=== PATIENT | female | born 1970 | race African-American/Black ===

== ENCOUNTER 2021-12-15 21:10 | Observation (INO) | payer OTHER, SELFPAY ==
--- NOTE | ~2021-12-15 | XR_ITS ---
EXAMINATION: XR chest 1V portable INDICATION: Chest pressure TECHNIQUE: Portable AP chest at 2007 hours COMPARISON: 01/14/2012 FINDINGS: The lungs are free of acute opacities. There is no pleural effusion or pneumothorax. The ca rdiomediastinal silhouette is normal. IMPRESSION: 1. No acute cardiopulmonary abnormality. Reviewed, dictated and finalized at location F. ERCIAL SALES CONSULTANT
--- NOTE | ~2021-12-15 | US_ITS ---
EXAMINATION: US pelvic complete w TV DATE: 12/16/2021 09:03 INDICATION: Heavy menstrual periods, anemia TECHNIQUE: Multiple transabdominal and endovaginal sonographic images of the pelvis were obtained. COMPARISON: None. FINDINGS: The uterus measures 10.8 x 5.1 x 4.7 cm. There is a 1.9 x 1.5 x 1.7 cm intramural fibroid o f the left uterine body. The endometrial complex measures 5 mm. The left ovary is not visualized craven mj no left adnexal abnormality is seen. The right ovary measures 2.7 x 3.9 x 2.7 cm. There is normal vascular flow in the right ovary. There is no free fluid in the pelvis. IMPRESSION: 1. No sonographic correlate for the patient's symptoms. Reviewed, dictated and finalized at location F. C THERAPY SPECIALIST
[2021-12-15 21:21] VITALS: BP 133/75; PULSE 68; RESP 18; TEMP 36.1; O2SAT 100
--- NOTE | 2021-12-15 22:01 | ECG_ITS ---
Measurements Intervals [place] Rate: 61 P: 63 [place]: 180 QRS: 70 QRSD: 85 T: 51 QT: 418 QTc: 423 Interpretive Statements SINUS RHYTHM BORDERLINE T WAVE ABNORMALITY- ANTERIOR LEADS BASELINE ARTIFACT- I, II, AVR, AVL BORDERLINE ECG Electronically Signed On 12-16-2021 7:07:19 TRACK HOE OPERATOR by Howard Carranza D.O.
--- NOTE | 2021-12-15 22:30 | ED.GENADULT ---
HPI - General Adult General Chief complaint: Dizziness Stated complaint: dizzy, blurry vision, chest pain x 3 days Time Seen by Provider: 12/15/21 21:55 History of Present Illness HPI narrative: Patient 51-year-old female presents the emergency department with chief complaint of dizziness. Patient reports she has been having urinary frequency has had symptoms that are worsened whenever she sits up or whenever she walks around patient states that she has also had some discomfort in her chest. Patient reports she is concerned that she may have heart problems and may have diabetes. Patient reports symptoms are not improved by anything. Related Data Allergies Allergy/AdvReac Type Severity Reaction Status Date / Time No Known Allergies Allergy Verified 12/15/21 22:31 Review of Systems Review of Systems: A 10 system review of systems was completed on the patient and is negative except for what is stated in the HPI. Nursing and ancillary documentation was reviewed. Exam Narrative: GENERAL: Well-appearing, well-nourished, and in no acute distress. HEAD: Normocephalic, atraumatic. EYES: PERRLA and EOMI. ENT: Nares clear, no rhinorrhea or epistaxis. Mucous membranes moist. NECK: Supple. CHEST: Clear to auscultation. No respiratory distress. HEART: Regular rate and rhythm. No murmur heard. Normal peripheral pulses. ABDOMEN: Soft, nontender, nondistended, normal active bowel sounds. : Guaiac negative EXTREMITIES: Normal range of motion. No edema. SKIN: Warm, dry, no rash. NEURO: No focal deficits. Alert and oriented x3. PSYCH: Normal mood and affect. Course Course Emergency Course: Chest x-ray shows no focal infiltrate EKG is sinus bradycardia rate of [address] elevation or ST depression Vital Signs Vital signs: Vital Signs Temperature 36.1 C L 12/15/21 21:21 Pulse Rate 68 12/15/21 21:21 Respiratory Rate 18 12/15/21 21:21 Blood Pressure 133/75 12/15/21 21:21 Pulse Oximetry 100 12/15/21 21:21 Temperature 36.1 C L 12/15/21 21:21 Pulse Rate 62 12/15/21 22:32 Respiratory Rate 13 12/15/21 22:32 Blood Pressure 123/76 12/15/21 22:32 Pulse Oximetry 100 12/15/21 22:32 Medical Decision Making Vital Signs Vital Signs: Vital Signs Temperature 36.1 C L 12/15/21 21:21 Pulse Rate 68 12/15/21 21:21 Respiratory Rate 18 12/15/21 21:21 Blood Pressure 133/75 12/15/21 21:21 Pulse Oximetry 100 12/15/21 21:21 Temperature 36.1 C L 12/15/21 21:21 Pulse Rate 62 12/15/21 22:32 Respiratory Rate 13 12/15/21 22:32 Blood Pressure 123/76 12/15/21 22:32 Pulse Oximetry 100 12/15/21 22:32 Lab Data Result diagrams: 12/15/21 22:32 12/15/21 22:33 Labs: Lab Results 12/15/21 12/15/21 12/15/21 Range/Units 22:31 22:32 22:32 WBC 7.9 (4.5-10.0) K/mm3 RBC 4.15 L (4.2-5.4) M/mm3 Hgb 7.7 L (12.0-15.0) g/dL Hct 26.1 L (37.0-47.0) % MCV 62.9 L (80-100) fl MCH 18.6 L (26-34) pg MCHC 29.5 L (32-36) g/dl RDW 19.4 H (11.5-14.5) % Plt Count 477 H (150-375) k/mm3 MPV 9.7 (7.4-10.4) fl Immature Gran % (Auto) 0.3 (0-0.5) % Neut % (Auto) 71.3 (45.5-73.1) % Lymph % (Auto) 19.4 (18.3-44.2) % [place] % (Auto) 7.7 (2.6-8.5) % Eos % (Auto) 0.9 (0-4.4) % Baso % (Auto) 0.4 (0.2-1.2) % Lymph # (Auto) 1.53 (0.9-3.2) K/mm3 [place] # (Auto) 0.6 (0.1-0.6) K/mm3 Eos # (Auto) 0.1 (0-0.3) K/mm3 Baso # (Auto) 0.0 (0.0-0.1) K/mm3 Abs Immat Gran (auto) 0.02 (0.00-0.031) K/mm3 Absolute Neuts (auto) 5.6 (1.3-6.7) K/mm3 Absolute Nucleated RBC 0.0 (0.0-0.012) K/mm3 Nucleated RBC % 0.0 (0.0-0.2) % Platelet Estimate Slightly increased (Adequate) Hypochromasia 3+ (NORMAL) Sodium (137-145) mmol/L Potassium (3.4-5.0) mmol/L Chloride (98-107) mmol/L Carbon Dioxide (22-30) mmol/L Anion Gap (8-16) mmol/L BUN (7-17) mg/d
[2021-12-15 22:32] VITALS: BP 123/76; PULSE 62; RESP 13; O2SAT 100
[2021-12-15] MEDS: SODIUM CHLORIDE 0.9% IV 1,000 ML 999 ML IV CONT (22:50)
[2021-12-15] MEDS: PROCHLORPERAZINE EDISYLATE 10 MG/2 ML VIAL IV PUSH (22:50)
[2021-12-15 22:55] LABS: Basophils Percent Auto 0.4 % (0.2-1.2); Eosinophils Absolute Auto 0.1 K/mm3 (0-0.3); Eosinophils Percent Auto 0.9 % (0-4.4); Hematocrit 26.1 % (37.0-47.0); Hemoglobin 7.7 g/dL (12.0-15.0); Immature Granulocyte Absolute 0.02 K/mm3 (0.00-0.031); Immature Granulocyte Percent A 0.3 % (0-0.5); Lymphocytes Absolute Auto 1.53 K/mm3 (0.9-3.2); Lymphocytes Percent Auto 19.4 % (18.3-44.2); Mean Corpuscular HGB Conc 29.5 g/dl (32-36); Mean Corpuscular Hemoglobin 18.6 pg (26-34); Mean Corpuscular Volume 62.9 fl (80-100); Mean Platelet Volume 9.7 fl (7.4-10.4); Monocytes Absolute Auto 0.6 K/mm3 (0.1-0.6); Monocytes Percent Auto 7.7 % (2.6-8.5); Neutrophils Absolute Auto 5.6 K/mm3 (1.3-6.7); Neutrophils Percent Auto 71.3 % (45.5-73.1); Platelet Count Result 477 k/mm3 (150-375); Red Blood Count 4.15 M/mm3 (4.2-5.4); Red Cell Distribution Width 19.4 % (11.5-14.5); White Blood Count 7.9 K/mm3 (4.5-10.0)
[2021-12-15 22:58] LABS: Add Urine Microscopic? YES; Appearance Urine Clear (Clear); Bilirubin Urine Negative (Negative); Blood Urine Negative (Negative); Color Urine Straw (Yellow); Glucose Urine UA Negative (Negative); Ketones Urine Negative (Negative); Leukocyte Esterase Ur 1+ LEU/UL (Negative); Nitrate Urine Negative (Negative); Protein Urine Negative (Negative); RBC Urine 0-2 /hpf (0-2); Squamous Epithelial Cell Urine Few /hpf (Few); Urobilinogen Urine Negative mg/dL (<2.0); WBC Urine 0-3 /hpf
[2021-12-15 23:04] LABS: Lactic Acid Reflex 1.1 mmol/L (0.7-2.1)
[2021-12-15 23:16] LABS: Hypochromasia 3+ (NORMAL)
[2021-12-15 23:17] LABS: Alanine Aminotransferase 20 U/L (4-35); Albumin Level 4.4 g/dL (3.5-5.1); Alkaline Phosphatase 65 U/L (38-126); Anion Gap 10 mmol/L (8-16); Aspartate Amino Transferase 42 U/L (14-36); Bilirubin,Total 0.4 mg/dL (0.2-1.3); Blood Urea Nitrogen 11 mg/dL (7-17); Calcium 9.3 mg/dL (8.4-10.2); Carbon Dioxide 22 mmol/L (22-30); Chloride 106 mmol/L (98-107); Estimated CRCL calculation 108 ml/min; Estimated Glomerular Filt Rate > 60; Glucose 101 mg/dL (65-110); Lipase 136 U/L (23-300); Magnesium 1.8 mg/dL (1.6-2.3); Potassium 4.2 mmol/L (3.4-5.0); Sodium 138 mmol/L (137-145); Troponin I < 0.012 ng/mL (0.000-0.034)
[2021-12-15 23:19] LABS: NT Pro B Type Natriuretic Pept 74 pg/mL (5-100)
[2021-12-15 23:51] VITALS: BP 134/75; PULSE 77
[2021-12-15 23:52] VITALS: BP 138/90; BP 140/84; PULSE 72; PULSE 82
[2021-12-16] VITALS (10 sets, daily range): BP systolic 102–128; BP diastolic 51–74; PULSE 58–79; RESP 14–18; TEMP 35.8–37.3; O2SAT 100; BMI 27.6
[2021-12-16 00:28] LABS: EDCOVIDSCREEN Negative (Negative)
[2021-12-16 00:34] LABS: Hematocrit 25.8 % (37.0-47.0); Hemoglobin 7.6 g/dL (12.0-15.0)
[2021-12-16 00:35] LABS: Glucose Point of Care 100 mg/dl (65-105)
--- NOTE | 2021-12-16 01:05 | ADMGEN ---
This patient, Joanne Tobar, was admitted to Medical Room 342-01. Patient/family oriented to hospital policies and general routines including ID bracelet, bed and alarms, visiting hours, pain management, procedures, bathroom and other care routines, personal items, smoking policy, room service/diet, and visiting hours. Information on how to activate the Rapid Response Team has been discussed. Patient/Family are encouraged to report perceived risks to care and to ask questions if they do not understand what they are told or what they should do.
[2021-12-16] MEDS: SODIUM CHLORIDE 0.9% IV 1,000 ML 125 ML IV CONT (06:12)
[2021-12-16 08:35] LABS: Reticulocyte Hemoglobin Conten 22.7 pg (28.2-35.7); Reticulocyte Percent 1.15 % (0.7-4.3); Reticulocytes Absolute 0.05 B/L (32.2-175.7)
[2021-12-16 09:01] LABS: Anion Gap 8 mmol/L (8-16); Blood Urea Nitrogen 6 mg/dL (7-17); Calcium 9.2 mg/dL (8.4-10.2); Carbon Dioxide 22 mmol/L (22-30); Chloride 108 mmol/L (98-107); Estimated CRCL calculation 127 ml/min; Estimated Glomerular Filt Rate > 60; Glucose 109 mg/dL (65-110); Potassium 4.8 mmol/L (3.4-5.0); Sodium 138 mmol/L (137-145)
--- NOTE | 2021-12-16 09:03 | PM.IMHP ---
H&P: HPI History of Present Illness Date/Time: 12/16/21 09:03 Chief Complaint: Dizziness Narrative: 51-year-old female with a history of iron deficiency anemia presented with a 3 day history of lightheaded feeling and fatigue more than usual. 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 She has chronic dyspnea on exertion since having COV and December 2019. She does have alternating light and heavy menses. She has tried taking iron in the past but has been unable to. She does not remember to take the tablets and she has some gastrointestinal intolerance to them. She has noted a vague chest discomfort with exertion recently along with the shortness of breath. Not actually pain more tightness. This is a bit worse than her chronic tightness that she has had since December of 2019. She notes recent worsening of PICA with consumption of ice and corn starch. She is not vegetarian and does consume red meat, including liver. After receiving 1 unit of packed red cells overnight she feels much better today. Her hemoglobin last night was 7.6 and today is 7.7. Review of Systems Review of Systems: All systems reviewed & are unremarkable except as noted in HPI and below PMFSH Past Medical History Medical History (Updated 12/16/21 @ 09:30 by Elliott Glover MD) Iron deficiency anemia Family History Family History Grandparent Diabetes mellitus Sibling Diabetes mellitus Acute myocardial infarction Father Acute myocardial infarction Mother Acute myocardial infarction Social History Social History (Updated 12/16/21 @ 09:29 by Elliott Glover MD) Social History: . Lives alone. 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 Smoking status: Current some day smoker Tobacco type: cigars Second hand tobacco smoke exposure: No Alcohol intake: unknown Substance use: never Living arrangements: alone Occupation/Education: occupation Additional occupation/education comments: [employer] Gender identity (if verbalized by the patient): Female Spiritual care concerns: No Meds Home Medications and Allergies Home Medications Medication Instructions Recorded Confirmed Type No Home Medications 12/16/21 12/16/21 History Allergies Allergy/AdvReac Type Severity Reaction Status Date / Time No Known Allergies Allergy Verified 12/16/21 01: Vital Signs Vital Signs - 24 hr 12/15/21 21:21 12/15/21 22:32 12/15/21 23:51 Temperature 97 F L Pulse Rate 68 62 77 Respiratory Rate 18 13 Blood Pressure 133/75 123/76 134/75 Pulse Oximetry 100 100 12/15/21 23:52 12/16/21 00:54 12/16/21 01:39 Temperature 97 F L Pulse Rate 82 79 73 Respiratory Rate 14 18 Blood Pressure 140/84 128/74 Pulse Oximetry 100 100 12/16/21 03:09 12/16/21 03:25 12/16/21 04:05 Temperature 96.8 F L 96.5 F L Pulse Rate 63 66 59 L Respiratory Rate 18 18 Blood Pressure 121/57 L 123/51 L Pulse Oximetry 100 100 12/16/21 04:25 12/16/21 05:25 12/16/21 06:31 Temperature 97 F L 97.1 F L 99.1 F Pulse Rate 62 58 L 69 Respiratory Rate 18 18 18 Blood Pressure 112/65 112/74 102/68 Pulse Oximetry 100 100 100 Exam Narrative: HEENT: PERRL, sclerae nonicteric, pharyngeal mucosa pink and intact NECK: No JVD, adenopathy, or thyromegaly CHEST: Clear to auscultation. Normal effort. HEART: NL S1/S2, regular, no murmur ABDOMEN: BS+, soft, nontender, no mass, no bruits EXTREMITIES: No cyanosis, edema, or clubbing NEUROLOGIC: CN intact and symmetric to inspection. MUSCULOSKELETAL: Tone and strength symmetric. PSYCH: Alert. Oriented to person, place, and time. H&P: Results Labs Labs: Short CBC 12/15/21 12/16/21 Range/Units 22:32 00:29 WBC 7.9 (4.5-10.0) K/mm3 Hgb 7.7 L 7.6 L (12.0-15.0) g/dL Hct 26.1 L 25.8 L (37.0-47.0) % Plt Count 477 H (150-375) k/mm3 BMP 12/15/21 12/16/21 22:33 08:27 Sodium 138
--- NOTE | 2021-12-16 09:35 | PM.DS ---
DS: Admitting Diagnosis Discharge Date Patient was seen and evaluated December 16 2019 to Admitting Diagnosis Symptomatic anemia DS: Discharge Diagnosis Discharge Diagnosis (1) Iron deficiency anemia: Qualifiers: Iron deficiency anemia type: chronic blood loss Qualified Code(s): D50.0 - Iron deficiency anemia secondary to blood loss (chronic) Code(s): D50.9 - Iron deficiency anemia, unspecified Status: Acute (2) Symptomatic anemia: Code(s): D64.9 - Anemia, unspecified Status: Acute DS: Summary Hospital Course Reason for hospitalization: Lightheadedness fatigue and shortness of breath with chest tightness Hospital Course: Admitted to medical unit and received 1 unit packed red cells. H&H was 7.7 on admission 7.6 by discharge. Received IV saline overnight at 125 mL/hour which would blunt or negate any increase in H&H by the 1 unit packed red cells. Had no history of blood in the stool or urine or other abnormal bleeding other than heavy menses intermittently. She had tried iron tablets in the past and did not remember to take them and had some gastrointestinal intolerance. Status at Discharge Functional status at discharge: independent ambulation Overall status at discharge: patient is progressing back to baseline Time Spent with Patient Time attestation: Total time spent providing and/or coordinating discharge services: Time spent: Greater than 30 minutes DS: Data Data Completed and Pending Labs on day of discharge: Labs from last 24 hours 12/16/21 12/16/21 12/16/21 08:27 08:27 08:27 WBC RBC Hgb Hct MCV MCH MCHC RDW Plt Count MPV Immature Gran % (Auto) Neut % (Auto) Lymph % (Auto) [place] % (Auto) Eos % (Auto) Baso % (Auto) Lymph # (Auto) [place] # (Auto) Eos # (Auto) Baso # (Auto) Abs Immat Gran (auto) Absolute Neuts (auto) Absolute Nucleated RBC Nucleated RBC % Platelet Estimate Hypochromasia Absolute Retic 0.05 L Percent Retic 1.15 Immature Retic Fraction 24.0 H Retic Hgb Content 22.7 L Sodium Potassium Chloride Carbon Dioxide Anion Gap BUN Creatinine Estim Creat Clear Calc Estimated GFR Glucose POC Capillary Glucose Lactic Acid Calcium Magnesium Iron Pending TIBC Pending % Saturation Pending Total Bilirubin AST ALT Alkaline Phosphatase Troponin I NT-Pro-B Natriuret Pep Total Protein Albumin Lipase Vitamin B12 Pending Folate Pending TSH (Reflex) Pending Urine Color Urine Appearance Urine pH Ur Specific [place] Urine Protein Urine Glucose (UA) Urine Ketones Ur Blood (Man) Urine Nitrate Urine Bilirubin Urine Urobilinogen Leukocyte Esterase Rfl Urine RBC Urine WBC Ur Squamous Epith Cells SARS-CoV-2 IgG/IgM Ag?Rapid Blood Type Antibody Screen Crossmatch 12/16/21 12/16/21 12/16/21 08:27 00:35 00:33 WBC RBC Hgb Hct MCV MCH MCHC RDW Plt Count MPV Immature Gran % (Auto) Neut % (Auto) Lymph % (Auto) [place] % (Auto) Eos % (Auto) Baso % (Auto) Lymph # (Auto) [place] # (Auto) Eos # (Auto) Baso # (Auto) Abs Immat Gran (auto) Absolute Neuts (auto) Absolute Nucleated RBC Nucleated RBC % Platelet Estimate Hypochromasia Absolute Retic Percent Retic Immature Retic Fraction Retic Hgb Content Sodium 138 Potassium 4.8 Chloride 108 H Carbon Dioxide 22 Anion Gap 8 BUN 6 L D Creatinine 0.50 L Estim Creat Clear Calc 127 Estimated GFR > 60 Glucose 109 POC Capillary Glucose 100 Lactic Acid Calcium 9.2 Magnesium Iron TIBC % Saturation Total Bilirubin AST ALT Alkaline Phosphatase Troponin I NT-Pro-B Natriuret Pep Total Protein Albumin Lipas
[2021-12-16 10:54] LABS: Iron 118 ug/dL (37-170); Percent Iron Saturation 27 % (20-50)
[2021-12-16 11:19] LABS: Folic Acid 8.5 ng/mL (2.76->20)
== END 2021-12-16 15:25 | disposition home or self-care (01) ==
LOC: ANHED 23:46 → ANH3MED 12-16 01:42
PROVIDERS: Admitting Provider Internal Medicine; Emergency Provider Emergency Medicine; PCP Internal Medicine; Visit Provider Internal Medicine
DX: D50.0 Iron deficiency anemia secondary to blood loss (chronic) (principal); N92.0 Excessive and frequent menstruation with regular cycle; R06.09 Other forms of dyspnea; Z86.16 Personal history of COVID-19; Z20.822 Contact with and (suspected) exposure to COVID-19; Z72.0 Tobacco use
CPT/HCPCS: 36415; 36430; 71045; 76830; 76856; 80048; 80053; 81001; 81025; 82607; 82746; 82948; 83540; 83550; 83605; 83690; 83735; 83880; 84443; 84484; 85014; 85018; 85025; 85046; 86850; 86900; 86901; 86920; 87426; 93005; 96361; 96374; 96375; 99285; C9803; G0378; G0379; J0780; J1756; J7030; P9016

== ENCOUNTER 2022-07-11 14:56 | Emergency (ER) | payer OTHER, SELFPAY ==
[2022-07-11 14:57] VITALS: BP 141/68; PULSE 90; RESP 16; TEMP 36.7; O2SAT 100
--- NOTE | 2022-07-11 15:17 | ED.RECABL ---
HPI - Recheck/Abnormal Lab/Rx General Chief Complaint: Recheck/Abnormal Lab/Rx Stated Complaint: abnormal labs Time Seen by Provider: 07/11/22 15:10 History of Present Illness HPI narrative: 52-year-old female states that she had gone some labs drawn yesterday, had gone a call that told her to go straight to the emergency room because her hemoglobin was low. She states that she has been having more easily fatigued, more shortness of breath on exertion. She is currently on her period. Related Data Home Medications Medication Instructions Recorded Confirmed carisoprodol 07/11/22 prednisone 20 mg tablet mg 07/11/22 Allergies Allergy/AdvReac Type Severity Reaction Status Date / Time No Known Allergies Allergy Verified 07/11/22 15:00 Review of Systems Review of Systems: CONST: Fatigue HEENT: No sore throat C/V: No chest pain RESP: No cough GI: No abdominal pain : Vaginal bleeding M/S: No joint pain. SKIN: No rash. NEURO: Some lightheadedness without focal numbness or weakness PSYCH: [No depression] [facility] Past Medical History Medical History Iron deficiency anemia Family History Family History Grandparent Diabetes mellitus Sibling Diabetes mellitus Acute myocardial infarction Father Acute myocardial infarction Mother Acute myocardial infarction Other Hypertension Social History Social History Social History: . Lives alone. 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 Smoking status: Current some day smoker Tobacco type: cigars Second hand tobacco smoke exposure: No Alcohol intake: unknown Substance use: never Additional occupation/education comments: [employer] Gender identity (if verbalized by the patient): Female Spiritual care concerns: No Exam Narrative: EXAMINATION OF ORGAN SYSTEMS/BODY AREAS: Constitutional: Vital signs per nursing GENERAL:[No acute distress, non-toxic appearing.] HEAD: Normal with no signs of head trauma. EYES: EOMI, pale conjunctiva ENT: Hearing grossly intact LUNGS: Nonlabored breathing. HEART: [Regular rate and rhythm] ABD: [Soft], [nontender to palpation] EXT: Normal range of motion SKIN: Pale NEURO: [Alert and oriented x 3. No gross focal sensory or strength deficits.] PSYCH: Normal affect Course Vital Signs Vital signs: Vital Signs Temperature 98.0 F 07/11/22 14:57 Pulse Rate 90 07/11/22 14:57 Respiratory Rate 16 07/11/22 14:57 Blood Pressure 141/68 H 07/11/22 14:57 Pulse Oximetry 100 07/11/22 14:57 Oxygen Delivery Room Air 07/11/22 14:57 Temperature 98.0 F 07/11/22 14:57 Pulse Rate 90 07/11/22 14:57 Respiratory Rate 16 07/11/22 14:57 Blood Pressure 141/68 H 07/11/22 14:57 Pulse Oximetry 100 07/11/22 14:57 Oxygen Delivery Room Air 07/11/22 14:57 MDM - Recheck/Abnormal Lab/Rx MDM Narrative Medical decision making narrative: 52-year-old female presenting with possible low hemoglobin requiring blood transfusion, vital signs stable here, on exam she is pale but otherwise in no apparent distress, labs checked here and her hemoglobin is 7.8, I discussed with the patient that given her blood likely caused from heavy uterine bleeding that I would like to start her on OCPs (on recommendation of SEAT BUILDER information management officer), and started on iron pills. 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 Patient endorses agreement and understanding with this plan. Lab Data Result diagrams: 07/11/22 15:26 Labs: Lab Results 07/11/22 07/11/22 Range/Units 15:26 15:26 WBC 13.7 H (4.5-10.0) K/mm3 RBC 3.95 L (4.2-5.4) M/mm3 Hgb 7.8 L (12.0-15.0) g/dL Hct 25.9 L (37.0-47.0) % MCV 65.6 L (80-100) fl MCH 19.7 L (26-34) pg MCHC 30.1 L (32-36)
[2022-07-11 15:43] LABS: Basophils Percent Auto 0.1 % (0.2-1.2); Hematocrit 25.9 % (37.0-47.0); Hemoglobin 7.8 g/dL (12.0-15.0); Immature Granulocyte Absolute 0.08 K/mm3 (0.00-0.031); Immature Granulocyte Percent A 0.6 % (0-0.5); Lymphocytes Absolute Auto 0.73 K/mm3 (0.9-3.2); Lymphocytes Percent Auto 5.3 % (18.3-44.2); Mean Corpuscular HGB Conc 30.1 g/dl (32-36); Mean Corpuscular Hemoglobin 19.7 pg (26-34); Mean Corpuscular Volume 65.6 fl (80-100); Mean Platelet Volume 9.4 fl (7.4-10.4); Monocytes Absolute Auto 0.2 K/mm3 (0.1-0.6); Monocytes Percent Auto 1.1 % (2.6-8.5); Neutrophils Absolute Auto 12.7 K/mm3 (1.3-6.7); Neutrophils Percent Auto 92.9 % (45.5-73.1); Platelet Count Result 460 k/mm3 (150-375); Red Blood Count 3.95 M/mm3 (4.2-5.4); Red Cell Distribution Width 17.1 % (11.5-14.5); White Blood Count 13.7 K/mm3 (4.5-10.0)
[2022-07-11 15:57] LABS: Microcytosis 1+ (NORMAL); Ovalocytes 1+ (NORMAL); Platelet Estimate Increased (Adequate); Target Cells 1+ (NORMAL)
[2022-07-11 15:58] LABS: Anisocytosis 1+ (NORMAL)
[2022-07-11 17:50] VITALS: BP 115/78; PULSE 71; RESP 16; O2SAT 100
== END 2022-07-11 17:50 | disposition home or self-care (01) ==
PROVIDERS: Emergency Provider Emergency Medicine; PCP Internal Medicine Gastroenterology
DX: D64.9 Anemia, unspecified (principal); N93.8 Other specified abnormal uterine and vaginal bleeding; F17.290 Nicotine dependence, other tobacco product, uncomplicated
CPT/HCPCS: 36415; 85025; 86850; 86900; 86901; 99283

== ENCOUNTER 2025-06-20 10:44 | Emergency (ER) | payer OTHER, SELFPAY ==
--- OUTSIDE RECORDS SUMMARY | 2025-06-20 10:46 | XMS_ITS | Clinical Summary ---
Author Organization [facility] Address [address] [place] [address] Phone Care Team Providers Care Proof Operator Name Role Phone Unavailable Primary Care Provider Unavailabl e Allergies No known active allergies Medications FeroSuL 325 mg (65 mg iron) tablet Take 325 mg by mouth daily. 07/11/2022 Active ferrous sulfate 325 mg (65 mg iron) tablet FeroSul 325 mg (65 mg iron) tablet TAKE 1 TABLET BY MOUTH DAILY Active acetaminophen (TYLENOL) 325 mg tablet 08/24/2022 Active docusate sodium (COLACE) 100 mg capsule Take 100 mg by mouth 2 times daily. 08/24/2022 Active ergocalciferol (VITAMIN D2) 50,000 unit capsule 09/21/2022 Active fluconazole (DIFLUCAN) 150 mg tablet 09/22/2022 Active gabapentin (NEURONTIN) 100 mg capsule 100 mg. 07/12/2022 Active metroNIDAZOLE (FLAGYL) 500 mg tablet 09/21/2022 Active methocarbamoL (ROBAXIN) 750 mg tablet Take 1 Tablet (750 mg) by mouth 3 times daily as needed for Spasm. 90 Tablet 1 11/05/2022 Active diclofenac sodium (VOLTAREN) 75 mg Tablet, Delayed Release (E.C.) Take 1 Tablet (75 mg) by mouth 2 times daily. Take with food 60 Tablet 1 02/06/2023 Active Active Problems Problem Noted Date Diagnosed Date Age-related nuclear cataract, bilateral 09/24/20 Contact with and (suspected) exposure to covid-1 9 09/24/2022 Headache, unspecified 09/24/2022 Intervertebral disc disorder s with radiculopathy, lumbar region 09/24/2022 Iron deficiency anemia 09/24/2022 Major depressive disorder, single episode, unspe cified 09/24/2022 Low back pain 09/24/2022 Other problems related to ho using and economic circumstances 09/24/2022 Pain of left hip joint 09/24/2022 Acute vaginitis 08/13/2022 Bronchitis 08/13/2022 Sinusitis 08/13/2022 Viral hepatitis A 08/13/2022 Vitamin D deficiency 07/13/2022 Shortness of breath 06/29/2022 Abnormal vaginal bleeding 06/19/2022 Chest pain 06/19/2022 Fatigue 06/19/2022 Bacterial vaginosis 05/06/2018 Genital herpes simplex 05/04/2018 Abnormal mammogram 03/26/2017 Anemia of chronic disease 03/26/2017 Sickle cell trait 03/26/2017 Family History Medical History Relation Name Comments Heart Disease Father Hypertension Father Hypertension Mother Heart Disease Sister Relation Name Status Comments Father Mother Sister Social History Tobacco Use Types Packs/Day Years Used Date Smoking Tobacco: Some Days Cigars Tobacco Cessation:Ready to Q uit: Not Asked; Counseling Given: Not Answered Alcohol Use Standard Drinks/Week Comments Yes 6 (1 standard drink = 0.6 oz pur e alcohol) OCCASIONALLY Comments No Sex and Gender Information Value Date Recorded Sex Assigned at Not on file 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 Gender Identity Not on file Sexual Orientation Not on file Last Filed Vital Signs Vital Sign Reading Time Taken Comments Blood Pressure 140/80 02/06/2023 2:09 PM CDT Pulse - - Temperature - - Respiratory Rate - - Oxygen Saturation - - Inhaled Oxygen Concentration - - Weight 100.7 kg (222 lb) 02/06/2023 2:09 PM CDT Height 180.3 cm (5' 11) 02/06/2023 2:09 PM CDT Body Mass Index 30.96 02/06/2023 2:09 PM CDT Plan of Treatment Health Maintenance Due Date Last Done Comments DTAP/TDAP/TD VACCINES (1 - Tdap) 1991 HEPATITIS B VACCINES (1 of 3 - 19+ 3-dose series) 05/1991 HPV/Cotest (21-29) 1993 CERVICAL CANCER SCREENING 2002 HPV/Cotest (30-65) 2002 PAP SMEAR 2002 BREAST CANCER SCREENING 2012 COLORECTAL SCREENING 2017 Colorectal Cancer Screening 2017 FIT-DNA Q 3 years 2017 FIT/FOBT Q 1 year 2017 Flex Sig/CT Colonography Q 5 years 2017 ZOSTER VACCINE (1 of 2) 2022 INFLUENZA VACCINE (#1) 2025 Insurance [employer] Member Subscriber Plan / Payer (Ef fective 2022-Present) Name:Joanne Tobar Relation to Subscriber:Employee Name:[id number] [employer] Address: [place] [address] Payer ID:Not on file Group ID:Not on file Type:Other Address: [place] [id number]
--- OUTSIDE RECORDS SUMMARY | 2025-06-20 10:46 | XMS_ITS | Data Portability ---
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 Plan of Treatment Reminders Order Date Submit Date Provider Last Modified By Organization Details Last Modified Time Details Appointments None recorde d. Lab vaginal pathoge ns panel, ALEXANDRE+pro be, vaginal fluid 2021 [facility], [address], [address], [place], [address], 03:07:42 pap, IG + HPV, cervica l 2021 [facility], [address], [address], [place], [address], 16:11:57 vitamin D, 25-hydr oxy, total, serum 2021 [facility], [address], [address], [place], [address], 09:11:56 HbA1c (hemogl obin A1c), blood 2021 [facility], [address], [address], [place], [address], 09:11:55 vitamin B12 + folate, serum or blood 2021 [facility], [address], [address], [place], [address], 09:11:55 iron + total iron-bi nding capacit y (TIBC), serum 2021 [facility]LEONADRO [facility], [address], [address], [place], [address], 09:11:54 CBC w/ auto diff 2021 [facility]ICKLEONARDO [facility], [address], [address], [place], [address], 09:11:54 ferriti n, serum or plasma 2021 RODERICKLEONARDO [facility], [address], [address], [place], [address], 09:11:57 TSH + free T4, serum 2021 [facility], [address], [address], [place], [address], 09:11:53 lipid panel, serum 2021 [place]ON [facility], [address], [address], [place], [address], 08:17:[address] [facility], [address], [address], [place], [address], 08:17:55 TSH + free T4, serum 2021 [facility], [address], [address], [place], [address], 08:17:54 SARS CoV 2 RNA (COVID- 19), QL, stabilizer operator-PCR , respira torgrecia specime n - exposed by sister who was pos, has cough, SOB, diarrhe a, for three day. 2019 020 [facility] ([facility]), [address], [place], [address], 0 11:36:58 lh + FSH, serum 2017 018 [facility], [address] [place] [address], [address], [place], [address], 8 08:30:02 estradi ol, serum 2017 018 [facility], [address] [place] [address], [address], [place], [address], 8 08:30:03 TSH + free T4, serum 2017 018 [facility], [address] [place] [address], [address], [place], [address], 8 08:30:01 RPR (rapid plasma reagin) , serum 2017 018 [facility], [address] [place] [address], [address], [place], [address], 8 08:30:04 hsv-2 (herpes simplex virus type 2) igg Ab, serum 2017 018 [facility], [address] [place] [address], [address], [place], [address], 8 08:30:05 hepatit is panel (A+B+C) , acute, serum 2017 018 [facility], [address] [place] [address], [address], [place], [address], 8 08:30:02 hepatit is B surface Ab, qualita tive, serum 2017 018 [facility], [facility] [facility], [address], [place], [address], 8 08:30:03 HIV 1+2 AB + HIV 1 p24 Ag, qualita tive immunoa ssay, serum [address] [facility], [address], [address] [address], [place], [address], 8 08:30:04 bacteri al vaginos is + vaginit is panel, vaginal - Z11.3, Z20.0 2017 018 [facility], [address] [place] [address], [address], [place], [address], 8 20:10:24 HSV (1+2) DNA, qual, PCR, unspeci fied specime n - Z11.3, Z20.2 2017 018 [facility], [address] [place] [address], [address], [place], [address], 8 20:10:24 culture , vaginal /rectal , strepto coccus group B - Z11.3, Z20.2 2017 018 [facility], [address] [place] [address], [address], [place], [address], 8 20:10:25 urinaly sis, dipstic k 2017 018 kirk In-Office Order, Internal Use Only DO Not Attach Compendium DO Not Attach Compendium, Do Not Delete/merge, [id number] 8 21:43:29 bacteri al vaginos is panel, vaginal [address] [facility], [address], [place], [address], 7 13:14:35 Referral cardiol ogist referra l 2021 022 [facility], [address] [facility], [address], [place], [address], 2 13:26:15 Procedures None recorde d. Surgeries None recorde d. Imaging MAMMO, screeni ng, bilater al 2017 018 [facility], [address] [place], [address], 8 11:00:50 MAMMO, diagnos tic, digital , bilater al 2016 017 [facility], [address], [address], [place], [address], 8 13:57:00 Medication Orders Jinteli 1 mg-5 mcg tablet 2017 018 [facility] [address], [place], [address], 2 10:55:10 calcium 600 mg (as carbona te)-vit stearns D3 20 mcg (800 unit) tablet 2017 018 [facility] In [facility], [address] [place] [address], [place], [address], 2 10:55:05 multivi tamin tablet 2017 018 [facility] [address], [place], [address], 8 12:04:29 Difluca n 150 mg tablet 2016 017 [email or web address] In [facility], [address] [place], [address], 10:54:46 Patient TargetsNo targets recorded. Patient Instructions Encounter Date Encounter Id Patient Instructions Last Modified By Organization Details Last Modified Time 11/21/2017 [id number] upper respiratory infection (cold): care instructions charo Not available 11/21/2017 13:21:54 2018 [id number] mammogram: about this test mwasserman Not available 2018 12:04:27 mammogram screening patient instructions mwasserman Not available 2018 12:04:28 sickle cell disease: care instructions mwasserman Not available 2018 11:58:39 learning about mood disorders mwasserman Not available 2018 11:58:39 07/09/2022 [id number] mammogram: about this test deldredsmith Not available 07/09/2022 12:16:00 fatigue: care instructions deldredsmith Not available 07/09/2022 12:16:00 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 for Vicky medel history of cardiac disorder Referring Physician: Jose Patel, Internal Medicine, Encounter Date: 06/19/2022 Results Created Date Observation Date Name Description Value Unit Range Abnormal Flag Note LastModifiedBy Organization Detail LastModifiedTime 05/01/2005/01/2018 urina lysis , dipst ick Leukocytes Negati ve Not Available In-Office Order Internal Use Only DO Not Attach Compendium DO Not Attach Compendium, Do Not Delete/merge, [id number] 2018 11:36:26 05/01/2005/01/2018 urina lysis , dipst ick Nitrite negati ve Not Available In-Office Order Internal Use Only DO Not Attach Compendium DO Not Attach Compendium, Do Not Delete/merge, [id number] 2018 11:36:26 05/01/2005/01/2018 urina lysis , dipst ick Urobilinogen .2 Not Available In-Of fice Order Internal Use Only DO Not Attach Compendium DO Not Attach Compendium, Do Not Delete/merge, [id number] 2018 11:36:26 05/01/20 2018 urina lysis , dipst ick Protein Negati ve Not Available In-Office Order Internal Use Only DO Not Attach Compendium DO Not Attach Compendium, Do Not Delete/merge, [id number] 2018 11:36:05/01/2005/01/2018 urina lysis , dipst ick pH 7.0 Not Available In-Office Order Internal Use Only DO Not Attach Compendium DO Not Attach Compendium, Do Not Delete/merge, [id number] 2018 11:36:05/01/2005/01/2018 urina lysis , dipst ick Blood Negati ve Not Available In-Office Order Internal Use Only DO Not Attach Compendium DO Not Attach Compendium, Do Not Delete/merge, [id number] 2018 11:36:05/01/2005/01/2018 urina lysis , dipst ick Specific Screven 1.015 Not Available In-Off ice Order Internal Use Only DO Not Attach Compendium DO Not Attach Compendium, Do Not Delete/merge, [id number] 2018 11:36:05/01/2005/01/2018 urina lysis , dipst ick Ketone Negati ve Not Available In-Office Order Internal Use Only DO Not Attach Compendium DO Not Attach Compendium, Do Not Delete/merge, [id number] 2018 11:36:05/01/2005/01/2018 urina lysis , dipst ick Bilirubin Negati ve Not Available In-Office Order Internal Use Only DO Not Attach Compendium DO Not Attach Compendium, Do Not Delete/merge, [id number] 2018 11:36:05/01/2005/01/2018 urina lysis , dipst ick Glucose Negati ve Not Available In-Office Order Internal Use Only DO Not Attach Compendium DO Not Attach Compendium, Do Not Delete/merge, [id number] 2018 11:36:05/01/2005/02/2018 TSH + free T4, serum TSH 1.170 uIU/m L 0.450- 4.500 Not Available [facility] ([facility]) [address] [facility], [place], [address], 05/02/2018 08:30:01 05/01/20 18 05/02/2018 TSH + free T4, serum T4,free(dire ct) 1.29 NG/dL 0.82-1 .77 Not Available [facility] ([facility]) [address] [facility], [place], [address], 05/02/2018 08:30:01 05/01/20 18 05/02/2018 hepat itis panel (A+B+ C), acute , serum hep A Ab, IgM Negati ve negati ve Not Available [facility] ([facility]) [address] [place], [address], 05/02/2018 08:30:02 05/01/20 18 05/02/2018 hepat itis panel (A+B+ C), acute , serum HBsAg screen Negati ve negati ve Not Available [facility] ([facility]) [address] [place], [address], 05/02/2018 08:30:02 05/01/20 18 05/02/2018 hepat itis panel (A+B+ C), acute , serum hep B core Ab, IgM Negati ve negati ve Not Available [facility] ([facility]) [address] [facility], [place], [address], 05/02/2018 08:30:02 05/01/20 18 05/02/2018 hepat itis panel (A+B+ C), acute , serum hep C virus Ab <0.1 s/co_ ratio 0.0-0. 9 Negat nidhi: < 0.8 Indet ermin ate: 0.8 - 0.9 Posit nidhi: > 0.9 The CDC recom mends that a posit nidhi HCV antib anant resul t be follo wed up with a HCV Nucle ic Acid Ampli ficat ion test (5507 13). Not Available [facility] ([facility]) [address] [facility], [place], [address], 05/02/2018 08:30:02 06/07/20 18 05/02/2018 lh + FSH, serum LH 3.9 mIU/m L Adult Femal e: Folli cular phase 2.4 - 12.6 Ovula tion phase 14.0 - 95.6 Lutea l phase 1.0 - 11.4 Postm enopa usal 7.7 - 58.5 Not Available [facility] ([facility]) [address] [place], [address], 05/02/2018 08:30:02 05/01/20 18 05/02/2018 lh + FSH, serum FSH 3.4 mIU/m L Adult Femal e: Folli cular phase 3.5 - 12.5 Ovula tion phase 4.7 - 21.5 Lutea l phase 1.7 - 7.7 Postm enopa usal 25.8 - 134.8 Not Available [facility] ([facility]) [address] [facility], [place], [address], 05/02/2018 08:30:02 05/01/20 18 05/02/2018 estra diol, serum estradiol 209.7 pg/mL Adult Femal e: Folli cular phase 12.5 - 166.0 Ovula tion phase 85.8 - 498.0 Lutea l phase 43.8 - 211.0 Postm enopa usal <6.0 - 54.7 Pregn andrey 1st trime ster 215.0 - >4300 .0 Girls (1-10 years ) 6.0 - 27.0 Alayna ECLIA metho dolog y Not Available [facility] ([facility]) [address] [place], [address], 05/02/2018 08:30:03 05/01/20 18 05/02/2018 hepat itis B surfa ce Ab, quali tativ e, serum hep B surface Ab, qual Non Reacti ve Non React nidhi: Incon siste nt with immun ity, less than 10 mIU/m L React nidhi: Consi stent with immun ity, great er than 9.9 mIU/m L Not Available [facility] ([facility]) [address] [facility], [place], [address], 05/02/2018 08:30:03 05/01/20 18 05/02/2018 RPR (rapi d plasm a reagi n), serum RPR Non Reacti ve non reacti ve Not Available [facility] ([facility]) [address] [facility], [place], [address], 05/02/2018 08:30:04 05/01/20 18 05/02/2018 HIV 1+2 AB + HIV 1 p24 Ag, quali tativ e immun oassa y, serum HIV screen 4TH generation wrfx Non Reacti ve non reacti ve Not Available [facility] ([facility]) [address] [facility], [place], [address], 05/02/2018 08:30:04 05/01/20 18 05/02/2018 hsv-2 (herp es simpl ex virus type 2) igg Ab, serum hsv 2 IgG, type spec 10.50 index 0.00-0 .90 above high normal Negat nidhi <0.91 Equiv ocal 0.91 - 1.09 Posit nidhi >1.09 Note: Negat nidhi indic ates no antib odies detec yaz to HSV-2 . Equiv ocal may sugge st early infec tion. If clini homa appro priat e, retes t at later date. Posit nidhi indic ates antib odies detec yaz to HSV-2 . Not Available [facility] ([facility]) [address] [facility], [place], [address], 05/02/2018 08:30:05 05/01/20 18 05/04/2018 bacte rial vagin osis + vagin itis panel , vagin al trich vag by ALEXANDRE Negati ve negati ve Not Available [facility] ([facility]) [address] [facility], [place], [address], 05/05/2018 20:10:23 05/01/20 18 05/04/2018 bacte rial vagin osis + vagin itis panel , vagin al chlamydia trachomatis, ALEXANDRE Negati ve negati ve Not Available [facility] ([facility]) [address] [place], [address], 05/05/2018 20:10:23 05/01/20 18 05/04/2018 bacte rial vagin osis + vagin itis panel , vagin al neisseria gonorrhoeae, ALEXANDRE Negati ve negati ve Not Available [facility] ([facility]) [address] [place], [address], 05/05/2018 20:10:23 05/01/20 18 05/05/2018 bacte rial vagin osis + vagin itis panel , vagin al atopobium vaginae High - 2 score abnormal Not Available [facility] ([facility]) [address] [place], [address], 05/05/2018 20:10:23 05/01/20 18 05/05/2018 bacte rial vagin osis + vagin itis panel , vagin al bvab 2 High - 2 score abnormal Not Available [facility] ([facility]) [address] [place], [address], 05/05/2018 20:10:23 05/01/20 18 05/05/2018 bacte rial vagin osis + vagin itis panel , vagin al megasphaera 1 Low - 0 score Calcu late total score by ricardo g the 3 indiv idual bacte rial vagin osis (BV) marke r score s toget her. Total score is inter prete d as follo ws: Total score 0-1: Indic ates the absen ce of BV. Total score 2: Indet ermin ate for BV. Addit ional clini yahaira data shoul d be evalu ated to estab dulce maria a diagn osis. Total score 3-6: Indic ates the prese nce of BV. This test was devel oped and its perfo rmanc e geeta cteri stics deter mined by [facility]. It has not been clear ed or appro rojelio by the Food and Drug Admin istra tion. The FDA has deter mined that such clear ance or appro delmy is not neces bahman. Not Available [facility] ([facility]) [address] [place], [address], 05/05/2018 20:10:23 05/01/20 18 05/05/2018 bacte rial vagin osis + vagin itis panel , vagin al jessica albicans, ALEXANDRE Positi ve negati ve abnormal Not Available [facility] ([facility]) [address] [facility], [place], [address], 05/05/2018 20:10:23 05/01/20 18 05/05/2018 bacte rial vagin osis + vagin itis panel , vagin al jessica glabrata, ALEXANDRE Negati ve negati ve This test was devel oped and its perfo rmanc e geeta cteri stics deter mined by [facility]. It has not been clear ed or appro rojelio by the Food and Drug Admin istra tion. The FDA has deter mined that such clear ance or appro delmy is not neces bahman. Not Available [facility] ([facility]) [address] [place], [address], 05/05/2018 20:10:23 05/01/20 18 05/04/2018 HSV (1+2) DNA, qual, PCR, unspe cifie d speci men hsv 1 ALEXANDRE Negati ve negati ve Not Available [facility] ([facility]) [address] [place], [address], 05/05/2018 20:10:24 05/01/20 18 05/04/2018 HSV (1+2) DNA, qual, PCR, unspe cifie d speci men hsv 2 ALEXANDRE Positi ve negati ve abnormal Not Available [facility] ([facility]) [address] [place], [address], 05/05/2018 20:10:24 05/01/20 18 05/03/2018 cultu re, vagin al/re ctal, strep tococ cus group B strep gp B ALEXANDRE Negati ve negati ve Cente rs for Disea se Contr ol and Preve ntion (CDC) and Latiaeri can Congr ess of Obste trici ans and Gynec ologi sts (ACOG ) guide lines for preve ntion of perin atal group B strep tococ yahaira (GBS) disea se speci fy co-co llect ion of a vagin al and recta l swab speci men to maxim ize sensi tivit y of GBS detec tion. Per the CDC and ACOG, swabb ing both the lower vagin a and rectu m subst antia lly incre ases the yield of detec tion susana red with sampl ing the vagin a alone . Penic illin G, ampic illin , or cefaz rashawn are indic ated for intra partu m proph ylaxi s of perin atal GBS colon izati on. Refle x susce ptibi lity testi ng shoul d be perfo rmed prior to use of clind amyci n only on GBS isola fuentes from penic illin -sarbjit rgic women who are consi dered a high risk for anaph ylaxi s. Treat ment with vanco mycin witho ut addit ional testi ng is warra nted if resis tance to clind amyci n is noted . Not Available [facility] ([facility]) [address] [facility], [place], [address], 05/05/2018 20:10:24 05/01/20 18 05/02/2018 speci men statu s repor t specimen status report TNP Pleas e refer to the follo wing speci men for addit ional lab resul ts. TEST: 58142 6 TSH+F ree T4 67850 4 Hepat itis Panel (4) [address]45 0 [place] [address] 5 Estra diol [address]159 5 [place] [address] 5 RPR, Rfx Qn RPR/[place] [address] 5 Panel 38827 5 30554 7 HSV Type 2-Spe cific Ab, IgG See Speci men 158-3 05-85 63-0 Not Available [facility] ([facility]) [address] [facility], [place], [address], 05/05/2018 20:10:25 03/15/20 20 03/15/2020 SARS CoV 2 RNA (COVI D-19) , QL, stabilizer operator-P CR, respi rator y speci men covid19 Please log into [facility] tent to view the report Not Available [facility] ([facility]) [address] [place], [address], 03/18/2020 11:36:58 06/19/20 22 06/20/2022 TSH+F REE T4 TSH 0.901 uIU/m L 0.450- 4.500 Not Available [facility] ([facility]) [address] [facility], [place], [address], 06/20/2022 08:17:54 06/19/20 22 06/20/2022 TSH+F REE T4 T4,free(dire ct) 1.23 NG/dL 0.82-1 .77 Not Available [facility] ([facility]) [address] [place], [address], 06/20/2022 08:17:54 06/19/20 22 06/20/2022 CBC, PLATE LET, NO DIFFE RENTI AL WBC 6.3 x10e3 /uL 3.4-10 .8 Not Available [facility] ([facility]) [address] [place], [address], 06/20/2022 08:17:55 06/19/20 22 06/20/2022 CBC, PLATE LET, NO DIFFE RENTI AL RBC 3.97 x10e6 /uL 3.77-5 .28 Not Available [facility] ([facility]) [address] [facility], [place], [address], 06/20/2022 08:17:55 06/19/20 22 06/20/2022 CBC, PLATE LET, NO DIFFE RENTI AL hemoglobin 7.9 g/dL 11.1-1 5.9 below low normal Not Available [facility] ([facility]) [address] [place], [address], 06/20/2022 08:17:55 06/19/20 22 06/20/2022 CBC, PLATE LET, NO DIFFE RENTI AL hematocrit 26.9 % 34.0-4 6.6 below low normal Not Available [facility] ([facility]) [address] [place], [address], 06/20/2022 08:17:55 06/19/20 22 06/20/2022 CBC, PLATE LET, NO DIFFE RENTI AL MCV 68 fL 79-97 below low normal Not Available [facility] ([facility]) [address] [facility], [place], [address], 06/20/2022 08:17:55 06/19/20 22 06/20/2022 CBC, PLATE LET, NO DIFFE RENTI AL MCH 19.9 pg 26.6-3 3.0 below low normal Not Available [facility] ([facility]) [address] [place], [address], 06/20/2022 08:17:55 06/19/20 22 06/20/2022 CBC, PLATE LET, NO DIFFE RENTI AL MCHC 29.4 g/dL 31.5-3 5.7 below low normal Not Available [facility] ([facility]) [address] [place], [address], 06/20/2022 08:17:55 06/19/20 22 06/20/2022 CBC, PLATE LET, NO DIFFE RENTI AL RDW 16.4 % 11.7-1 5.4 above high normal Not Available [facility] ([facility]) [address] [place], [address], 06/20/2022 08:17:55 06/19/20 22 06/20/2022 CBC, PLATE LET, NO DIFFE RENTI AL platelets 419 x10e3 /uL 150-45 0 Not Available [facility] ([facility]) [address] [facility], [place], [address], 06/20/2022 08:17:55 06/19/20 22 06/20/2022 CBC, PLATE LET, NO DIFFE RENTI AL NRBC 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 Not Available [facility] ([facility]) [address] [facility], [place], [address], 06/20/2022 08:17:55 06/19/20 22 06/20/2022 LIPID PANEL cholesterol, total 174 mg/dL 100-19 9 Not Available [facility] ([facility]) [address] [place], [address], 06/20/2022 08:17:56 06/19/20 22 06/20/2022 LIPID PANEL triglyceride s 37 mg/dL 0-149 Not Available [facility] ([facility]) [address] [place], [address], 06/20/2022 08:17:56 06/19/20 22 06/20/2022 LIPID PANEL HDL cholesterol 77 mg/dL >39 Not Available [facility] ([facility]) [address] [facility], [place], [address], 06/20/2022 08:17:56 06/19/20 22 06/20/2022 LIPID PANEL VLDL cholesterol yahaira 8 mg/dL 5-40 Not Available [facility] ([facility]) [address] [place], [address], 06/20/2022 08:17:56 06/19/20 22 06/20/2022 LIPID PANEL LDL chol calc ([facility]) 89 mg/dL 0-99 Not Available [facility] ([facility]) [address] [place], [address], 06/20/2022 08:17:56 06/19/20 22 06/20/2022 LIPID PANEL comment: 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 Not Available [facility] ([facility]) [address] [place], [address], 06/20/2022 08:17:56 07/09/20 22 07/10/2022 TSH+F REE T4 TSH 1.420 uIU/m L 0.450- 4.500 Not Available [facility] ([facility]) [address] [facility], [place], [address], 07/10/2022 09:11:53 07/09/20 22 07/10/2022 TSH+F REE T4 T4,free(dire ct) 1.11 NG/dL 0.82-1 .77 Not Available [facility] ([facility]) [address] [facility], [place], [address], 07/10/2022 09:11:53 07/09/20 22 07/10/2022 CBC WITH DIFFE RENTI AL/PL ATELE T WBC 16.5 x10e3 /uL 3.4-10 .8 above high normal Not Available [facility] ([facility]) [address] [place], [address], 07/10/2022 09:11:54 07/09/20 22 07/10/2022 CBC WITH DIFFE RENTI AL/PL ATELE T RBC 4.40 x10e6 /uL 3.77-5 .28 Not Available [facility] ([facility]) [address] [place], [address], 07/10/2022 09:11:54 07/09/20 22 07/10/2022 CBC WITH DIFFE RENTI AL/PL ATELE T hemoglobin 8.5 g/dL 11.1-1 5.9 below low normal Not Available [facility] ([facility]) [address] [place], [address], 07/10/2022 09:11:54 07/09/20 22 07/10/2022 CBC WITH DIFFE RENTI AL/PL ATELE T hematocrit 29.4 % 34.0-4 6.6 below low normal Not Available [facility] ([facility]) [address] [place], [address], 07/10/2022 09:11:54 07/09/20 22 07/10/2022 CBC WITH DIFFE RENTI AL/PL ATELE T MCV 67 fL 79-97 below low normal Not Available [facility] ([facility]) [address] [place], [address], 07/10/2022 09:11:54 07/09/20 22 07/10/2022 CBC WITH DIFFE RENTI AL/PL ATELE T MCH 19.3 pg 26.6-3 3.0 below low normal Not Available [facility] ([facility]) [address] [place], [address], 07/10/2022 09:11:54 07/09/20 22 07/10/2022 CBC WITH DIFFE RENTI AL/PL ATELE T MCHC 28.9 g/dL 31.5-3 5.7 below low normal Not Available [facility] ([facility]) [address] [place], [address], 07/10/2022 09:11:54 07/09/20 22 07/10/2022 CBC WITH DIFFE RENTI AL/PL ATELE T RDW 16.5 % 11.7-1 5.4 above high normal Not Available [facility] ([facility]) [address] [place], [address], 07/10/2022 09:11:54 07/09/20 22 07/10/2022 CBC WITH DIFFE RENTI AL/PL ATELE T platelets 574 x10e3 /uL 150-45 0 above high normal Not Available [facility] ([facility]) [address] [place], [address], 07/10/2022 09:11:54 07/09/20 22 07/10/2022 CBC WITH DIFFE RENTI AL/PL ATELE T neutrophils 74 % not estab. Not Available [facility] ([facility]) [address] [facility], [place], [address], 07/10/2022 09:11:54 07/09/20 22 07/10/2022 CBC WITH DIFFE RENTI AL/PL ATELE T lymphs 19 % not estab. Not Available [facility] ([facility]) [address] [facility], [place], [address], 07/10/2022 09:11:54 07/09/20 22 07/10/2022 CBC WITH DIFFE RENTI AL/PL ATELE T monocytes 6 % not estab. Not Available [facility] ([facility]) [address] [facility], [place], [address], 07/10/2022 09:11:54 07/09/20 22 07/10/2022 CBC WITH DIFFE RENTI AL/PL ATELE T eos 0 % not estab. Not Available [facility] ([facility]) [address] [facility], [place], [address], 07/10/2022 09:11:54 07/09/20 22 07/10/2022 CBC WITH DIFFE RENTI AL/PL ATELE T basos 0 % not estab. Not Available [facility] ([facility]) [address] [facility], [place], [address], 07/10/2022 09:11:54 07/09/20 22 07/10/2022 CBC WITH DIFFE RENTI AL/PL ATELE T immature cells 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 Not Available [facility] ([facility]) [address] [facility], [place], [address], 07/10/2022 09:11:54 07/09/20 22 07/10/2022 CBC WITH DIFFE RENTI AL/PL ATELE T neutrophils (absolute) 12.3 x10e3 /uL 1.4-7. 0 above high normal Not Available [facility] ([facility]) [address] [facility], [place], [address], 07/10/2022 09:11:54 07/09/20 22 07/10/2022 CBC WITH DIFFE RENTI AL/PL ATELE T lymphs (absolute) 3.1 x10e3 /uL 0.7-3. 1 Not Available [facility] ([facility]) [address] [facility], [place], [address], 07/10/2022 09:11:54 07/09/20 22 07/10/2022 CBC WITH DIFFE RENTI AL/PL ATELE T monocytes(ab solute) 1.1 x10e3 /uL 0.1-0. 9 above high normal Not Available [facility] ([facility]) [address] [facility], [place], [address], 07/10/2022 09:11:54 07/09/20 22 07/10/2022 CBC WITH DIFFE RENTI AL/PL ATELE T eos (absolute) 0.0 x10e3 /uL 0.0-0. 4 Not Available [facility] ([facility]) [address] [facility], [place], [address], 07/10/2022 09:11:54 07/09/20 22 07/10/2022 CBC WITH DIFFE RENTI AL/PL ATELE T baso (absolute) 0.0 x10e3 /uL 0.0-0. 2 Not Available [facility] ([facility]) [address] [facility], [place], [address], 07/10/2022 09:11:54 07/09/20 22 07/10/2022 CBC WITH DIFFE RENTI AL/PL ATELE T immature granulocytes 1 % not estab. Not Available [facility] ([facility]) [address] [facility], [place], [address], 07/10/2022 09:11:54 07/09/20 22 07/10/2022 CBC WITH DIFFE RENTI AL/PL ATELE T immature grans (abs) 0.1 x10e3 /uL 0.0-0. 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 Not Available [facility] ([facility]) [address] [facility], [place], [address], 07/10/2022 09:11:54 07/09/20 22 07/10/2022 IRON AND TIBC iron bind.cap.(TI BC) 457 ug/dL 250-45 0 above high normal Not Available [facility] ([facility]) [address] [place], [address], 07/10/2022 09:11:54 07/09/20 22 07/10/2022 IRON AND TIBC UIBC 442 ug/dL 131-42 5 above high normal Not Available [facility] ([facility]) [address] [place], [address], 07/10/2022 09:11:54 07/09/20 22 07/10/2022 IRON AND TIBC iron 15 ug/dL 27-159 below low normal Not Available [facility] ([facility]) [address] [place], [address], 07/10/2022 09:11:54 07/09/20 22 07/10/2022 IRON AND TIBC iron saturation 3 % 15-55 alert low Not Available [facility] ([facility]) [address] [place], [address], 07/10/2022 09:11:54 07/09/20 22 07/10/2022 VITAM IN B12 AND FOLAT E vitamin B12 420 pg/mL 232-12 45 Not Available [facility] ([facility]) [address] [facility], [place], [address], 07/10/2022 09:11:55 07/09/20 22 07/10/2022 VITAM IN B12 AND FOLAT E folate (folic acid), serum 5.8 NG/mL >3.0 A serum folat e raymundo ntrat ion of less than 3.1 ng/mL is consi dered to repre sent clini yahaira defic iency . Not Available [facility] ([facility]) [address] [facility], [place], [address], 07/10/2022 09:11:55 07/09/20 22 07/10/2022 HEMOG LOBIN A1C hemoglobin A1C 5.5 % 4.8-5. 6 Predi abete s: 5.7 - 6.4 Diabe fuentes: >6.4 Glyce ari contr ol for adult s with diabe fuentes: <7.0 Not Available [facility] ([facility]) [address] [facility], [place], [address], 07/10/2022 09:11:55 07/09/20 22 07/10/2022 VITAM IN D, 25-HY DROXY vitamin D, 25-hydroxy 10.1 NG/mL 30.0-1 00.0 below low normal Vitam in D defic iency has been defin ed by the Insti tute of Medic ine and an Endoc rine Socie ty pract ice guide line as a level of serum 25-OH vitam in D less than 20 ng/mL (1,2) . The Endoc rine Socie ty went on to furth er defin e vitam in D insuf ficie ncy as a level betwe en 21 and 29 ng/mL (2). 1. IOM (Inst itute of Medic ine). 2010. Dieta ry refer ence demetrius es for calci um and D. Loretta [place]: The [facility] . 2. Princess k MF, Taylor ey [place], Urvashi off-F errar i PATEL, et al. Evalu ation , treat ment, and preve ntion of vitam in D defic iency : an Endoc rine Socie ty clini yahaira pract ice guide line. JCEM. 2010; 96(7) :1911 -30. Not Available [facility] ([facility]) [address] [place], [address], 07/10/2022 09:11:56 07/09/20 22 07/10/2022 SHANIQUE TIN ferritin 3 NG/mL 15-150 below low normal Not Available [facility] ([facility]) [address] [place], [address], 07/10/2022 09:11:56 07/09/20 22 07/10/2022 NUSWA B VAGIN ITIS PLUS (VG+) atopobium vaginae High - 2 score abnormal Not Available [facility] ([facility]) [address] [place], [address], 07/11/2022 03:07:42 07/09/20 22 07/10/2022 NUSWA B VAGIN ITIS PLUS (VG+) bvab 2 High - 2 score abnormal Not Available [facility] ([facility]) [address] [place], [address], 07/11/2022 03:07:42 07/09/20 22 07/10/2022 NUSWA B VAGIN ITIS PLUS (VG+) megasphaera 1 High - 2 score abnormal Calcu late total score by ricardo g the 3 indiv idual bacte rial vagin osis (BV) marke r score s toget her. Total score is inter prete d as follo ws: Total score 0-1: Indic ates the absen ce of BV. Total score 2: Indet ermin ate for BV. Addit ional clini yahaira data shoul d be evalu ated to estab dulce maria a diagn osis. Total score 3-6: Indic ates the prese nce of BV. This test was joshua herrera and its perfo elizabeth e geeta mannyri stics deter mined by [facility]. It has not been clear ed or appro rojelio by the Food and Drug Admin istra tion. Not Available [facility] ([facility]) [address] [place], [address], 07/11/2022 03:07:42 07/09/20 22 07/10/2022 NUSWA B VAGIN ITIS PLUS (VG+) jessica albicans, ALEXANDRE Negati ve negati ve Not Available [facility] ([facility]) [address] [place], [address], 07/11/2022 03:07:42 07/09/20 22 07/10/2022 NUSWA B VAGIN ITIS PLUS (VG+) jessica glabrata, ALEXANDRE Negati ve negati ve Not Available [facility] ([facility]) [address] [place], [address], 07/11/2022 03:07:42 07/09/20 22 07/11/2022 NUSWA B VAGIN ITIS PLUS (VG+) trich vag by ALEXANDRE Negati ve negati ve Not Available [facility] ([facility]) [address] [place], [address], 07/11/2022 03:07:42 07/09/20 22 07/11/2022 NUSWA B VAGIN ITIS PLUS (VG+) chlamydia trachomatis, ALEXANDRE Negati ve negati ve Not Available [facility] ([facility]) [address] [place], [address], 07/11/2022 03:07:42 07/09/20 22 07/11/2022 NUSWA B VAGIN ITIS PLUS (VG+) neisseria gonorrhoeae, ALEXANDRE Negati ve negati ve Not Available [facility] ([facility]) [address] [place], [address], 07/11/2022 03:07:42 07/09/20 22 07/11/2022 IGP, APTIM A HPV HPV aptima Negati ve negati ve This nucle ic acid ampli ficat ion test detec ts fourt een high- risk HPV types (16,1 8,31, 33,35 ,39,4 5,51, 52,56 ,58,5 9,66, 68) witho ut diffe renti ation . Not Available [facility] ([facility]) [address] [facility], [place], [address], 07/12/2022 16:11:57 07/09/20 22 07/12/2022 IGP, APTIM A HPV diagnosis: Rebekah t NEGAT NIDHI FOR INTRA EPITH ELIAL LESIO N OR MELONY WOLF . PREDO MINAN CE OF [place]CCO BACIL LI CONSI STENT WITH SHIFT IN VAGIN AL MIGUEL IS PRESE NT. THIS SPECI MEN WAS RESCR EENED PART OF OUR QUALI TY CONTR OL PROGR AM. Not Available [facility] ([facility]) [address] [facility], [place], [address], 07/12/2022 16:11:57 07/09/20 22 07/12/2022 IGP, APTIM A HPV specimen adequacy: Rebekah t Satis facto ry for evalu ation . No endoc ervic al compo nent is ident ified . Not Available [facility] ([facility]) [address] [facility], [place], [address], 07/12/2022 16:11:57 07/09/20 22 07/12/2022 IGP, APTIM A HPV clinician provided ICD10: Rebekah harris Z01.4 19 Not Available [facility] ([facility]) [address] [facility], [place], [address], 07/12/2022 16:11:57 07/09/20 22 07/12/2022 IGP, APTIM A HPV performed by: Rebekah antoine, Cytot echno logis t (ASCP ) Not Available [facility] ([facility]) [address] [place], [address], 07/12/2022 16:11:57 07/09/20 22 07/12/2022 IGP, APTIM A HPV QC reviewed by: Rebekah turner, Cytot echno logis t (ASCP ) Not Available [facility] ([facility]) [address] [place], [address], 07/12/2022 16:11:57 07/09/20 22 07/12/2022 IGP, APTIM A HPV . . Not Available [facility] ([facility]) [address] [facility], [place], [address], 07/12/2022 16:11:57 07/09/20 22 07/12/2022 IGP, APTIM A HPV note: Rebekah harris The Pap smear is a scree sandra test desig renny to aid in the detec tion of muriel ligna nt and malig nant condi tions of the uteri ne cervi x. It is not a diagn ostic proce dure and shoul d not be used as the sole means of detec ting cervi yahaira cance r. Both false -posi tive and false -nega tive repor ts do occur . Not Available [facility] ([facility]) [address] [facility], [place], [address], 07/12/2022 16:11:57 07/09/20 22 07/12/2022 IGP, APTIM A HPV test methodology: Rebekah harris This liqui d based ThinP rep(R ) pap test was scree renny with the use of an image guide mat brown. Not Available [facility] ([facility]) [address] [place], [address], 07/12/2022 16:11:57 12/06/19 18 12/06/2017 MAMMO , diagn ostic , digit al, bilat eral No observ ation record ed. [facility] [address], [place], [address], 2018 13:28:50 12/06/19 18 12/06/2017 MAMMO , diagn ostic , digit al, bilat eral No observ ation record ed. [facility] [address], [place], [address], 2018 13:28:50 12/06/19 18 12/06/2017 MAMMO , diagn ostic , digit al, bilat eral No observ ation record ed. [facility] [address], [place], [address], 2018 13:28:50 12/06/19 18 12/06/2017 MAMMO , diagn ostic , digit al, bilat eral No observ ation record ed. [facility] [address], [place], [address], 2018 13:28:50 01/28/20 18 12/06/2017 imagi ng/di agnos tic resul t No observ ation record ed. [facility] [address], [place], [address], 2018 13:28:50 02/27/20 18 02/26/2018 mammo gram, follo w up* No observ ation record ed. [facility] [address], [place], [address], 2018 13:28:49 03/07/20 18 03/07/2018 biops y, breas t (PROC ) No observ ation record ed. [facility] [address] [facility] , [place], [address], 2018 13:28:49 07/03/20 18 07/03/2018 MAMMO , scree sandra, bilat eral No observ ation record ed. [facility] [address] [place], [address], 07/09/2018 12:13:41 07/09/20 22 07/09/2022 elect rocbhavna diogr am inter preta tion* No observ ation record ed. [facility] [address], [place], [address], 07/12/2022 17:54:34 Result Notes None recorded. Problems Name Problem SNOMED Code Status Onset Date Resolution Date Notes Provider Name and Address Organization Details Recorded Time Sinusitis 34596603 Active ZO [place] - [facility] 6 10:37:47 Bronchitis 93067501 [place] ZO [place] [facility] 6 10:37:47 Candidiasis of vagina 83871398 Active Barbara Dc [place] null, [place] - [facility] 6 10:37:47 Acute vaginitis 74181929 Active Lori [place] - [facility] 6 11:09:42 Viral hepatitis, type A 32254457 Active L[place] - [facility] 6 13:13:08 Sickle cell trait 84703125 Active 2016 Narciso hudson [place] - [facility] 7 12:58:08 Anemia of chronic disease 266993695 Active 2016 Narciso [place] [facility] 7 13:04:17 Atrophic vaginitis 85162969 Active 2016 [place]arciso [place] [facility] 7 13:06:22 Mammography abnormal 211702404 Active 2016 Narciso h[place] [facility] 7 13:06:30 Genital herpes simplex 77503148 Active 2017 Narciso hudson [place] - [facility] 8 09:53:49 Bacterial vaginosis 219103646 Active 2017 Narciso hudson, [place] - [facility] 8 18:31:14 Fatigue 03452867 Active 2021 Jose Patel MD Attn: Carlos leonor,[address] [facility], [place], [address], [facility] - [facility] 2 11:56:08 Abnormal vaginal bleeding 169034168 Active 2021 Jose Patel MD Attn: Carlos leonor,[address] [facility], [place], [address], [facility] - [facility] 2 11:56:30 Family history of cardiac disorder 435798034 Active 2021 Jose Patel MD Attn: Carlos galvez,[address] [facility], [place], [address], [facility] - [facility] 2 11:59:17 Atypical chest pain 308978738 Active 2021 Jose Patel MD Attn: Carlos galvez,[address] [facility], [place], [address], [facility] - [facility] 2 12:04:58 Problem Notes None recorded. Procedures Surgical History Date Name Laterality Status Provider Name and Address Organization Details Recorded Time 04/25/20 21 Date of Last Mammogram completed Yamel Rock MA [facility] 07/09/2022 11:58:50 02/24/20 18 Breast Biopsy completed Yamel Rock MA [facility] 2018 11:35:00 12/06/19 18 Most Recent Mammogram completed Yamel Rock MA [facility] 2018 11:29:46 06/27/20 17 Date of Last Pap Smear completed Yamel Rock MA [facility] 2018 11:28:53 10/18/20 14 Cholecystectomy completed Lori Ibarra [facility] 01/11/2015 10:23:16 11/25/19 02 Caesarean Section completed Lori Ibarra [facility] 01/11/2015 10:23:58 11/25/19 02 Tubal Ligation completed [facility] 01/11/2015 10:24:28 11/25/18 95 Caesarean Section completed [facility] 01/11/2015 10:23:44 11/25/18 94 Dilation and Curettage completed [facility] 01/11/2015 10:26:33 Imaging Results None recorded. Procedure Notes None recorded. Medical Equipment None Reported. Allergies No known drug allergies Medications Name Sig Start Date Stop Date Status Note LastModified by Organization Details LastModified Time multivitami n tablet TAKE 1 TABLET BY MOUTH DAILY active Not Available Not Available No t Available cyclobenzap rine 10 mg tablet Take 1 tablet 3 times a day by oral route. active Not Available Not Available No t Available acetaminoph en 325 mg tablet active Not Available Not Available Not Available fluconazole 150 mg tablet TAKE 1 TABLET BY MOUTH NEEDED FOR 1 DAY active Not Available Not Available No t Available meloxicam 15 mg tablet active Not Available Not Available Not Available prednisone 20 mg tablet Take 1 tablet every day by oral route. active Not Available Not Available No t Available Zithromax Z-Gilberto 250 mg tablet TAKE 2 TABLETS (500 MG) BY ORAL ROUTE ONCE DAILY FOR 1 DAY THEN 1 TABLET (250 MG) BY ORAL ROUTE ONCE DAILY FOR 4 DAYS 05/01 completed Not Available Not Available Not Available metronidazo le 500 mg tablet TAKE 1 TABLET BY MOUTH TWICE DAILY FOR 7 DAYS active Not Available Not Available No t Available Condoms-Pre m Lubricated Take 1 device by miscell. route. 06/19 completed Not Available Not Available Not Available acyclovir 800 mg tablet Take 1 tablet every day by oral route. 06/19 completed Not Available Not Available Not Available docusate sodium 100 mg capsule TAKE 1 CAPSULE BY MOUTH TWICE DAILY active Not Available Not Available No t Available omeprazole 20 mg capsule,del ayed release 05/01 completed Not Available Not Available Not Available folic acid 1 mg tablet Take 4 tablets every day by oral route. 05/01 completed Not Available Not Available Not Available ergocalcife rol (vitamin D2) 1,250 mcg (50,000 unit) capsule TAKE 1 CAPSULE BY MOUTH 1 TIME A WEEK active Not Available Not Available No t Available Cheratussin AC 10 mg-100 mg/5 mL oral liquid Take 10 mL every 4 hours by oral route as needed. 05/01 completed Not Available Not Available Not Available ibuprofen 600 mg tablet TAKE 1 TABLET BY MOUTH EVERY 6 HOURS NEEDED FOR PAIN active Not Available Not Available No t Available albuterol sulfate HFA 90 mcg/actuati on aerosol inhaler Inhale 2 puffs every 4 hours by inhalatio n route. 06/19 completed Not Available Not Available Not Available naproxen 500 mg tablet Take 1 tablet as needed by oral route. active Not Available Not Available No t Available Bactrim DS 800 mg-160 mg tablet Take 1 tablet every 12 hours by oral route for 5 days. 05/01 completed Not Available Not Available Not Available azithromyci n 500 mg tablet TAKE 2 TABLETS BY MOUTH NOW WITH FOOD DIRECTED 06/19 completed Not Available Not Available Not Available Cryselle (28) 0.3 mg-30 mcg tablet TAKE 1 TABLET BY MOUTH DAILY active Not Available Not Available No t Available Premarin 0.625 mg/gram vaginal cream Insert 1 g twice a week by vaginal route. 05/01 completed Not Available Not Available Not Available nitrofurant oin monohydrate /macrocryst als 100 mg capsule TAKE 1 CAPSULE BY MOUTH TWICE DAILY WITH FULL GLASS OF WATER 06/19 completed Not Available Not Available Not Available FeroSul 325 mg (65 mg iron) tablet TAKE 1 TABLET BY MOUTH DAILY active Not Available Not Available No t Available Jinteli 1 mg-5 mcg tablet 06/19 completed Not Available Not Available Not Available calcium 600 mg (as carbonate)- vitamin D3 20 mcg (800 unit) tablet Take 1 tablet twice a day by oral route for 30 days. 06/19 completed Not Available Not Available Not Available Vitals Date Recorded Body height Body mass index (BMI) Body weight Systolic And Diastolic Provider Name and Address Organization Details Last Updated DateTime 2018 180.34 cm 29.3 kg/m2 98054.4 g 116/82 mm[Hg] Yamel Rock [place] - [facility] 2018 11:34:18 Date Recorded Body height Body mass index (BMI) Body weight Heart rate Body temperature Oxygen saturation Oxygen saturation in Arterial blood by Pulse oximetry Systolic And Diastolic Provider Name and Address Organization Details Last Updated DateTime 2 180.34 cm 27.9 kg/m2 55317.4 7 g 84 /min 98.1 [degF] 97 % 97 % 102/78 mm[Hg] Lisa Foote [place] - [facility] 2 11:18:22 Date Recorded Body height Body mass index (BMI) Body weight Systolic And Diastolic Provider Name and Address Organization Details Last Updated DateTime 07/09/2022 180.34 cm 28.5 kg/m2 66470.84 g 98/64 mm[Hg] Yamel Rock MA [facility] 07/09/2022 12:05:49 Date Recorded Body height Body mass index (BMI) Body weight Provider Name and Address Organization Details Last Updated DateTime 11/21/2017 180.34 cm 26.4 kg/m2 31413.96 g Roseann Hoffman MA [facility] 11/21/2017 09:52:18 Social History Question Answer Notes LastModified by Organization Details LastModified Time Tobacco Smoking Status Smoker, Current Status Unknown cigars occasionally Yamel Rock MA null, [facility] 07/09/2022 12:04:03 Do You Have An Advance Directive? No Information not available 08/20/2016 Is Blood Transfusion Acceptable In An Emergency? Yes Information not available 08/20/2016 What Is Your Level Of Caffeine Consumption? Occasional Information not available 08/20/2016 How Much Tobacco Do You Chew? None Information not available 08/20/2016 What Type Of Diet Are You Following? REGULAR Information not available 08/20/2016 Education 2 Year College Information not available 08/20/2016 Live Alone Or With Others? Alone Information not available 08/20/2016 What Was The Date Of Your Most Recent Tobacco Screening? 07/09/2022 Information not available 07/09/2022 How Many Children Do You Have? 3 Information not available 08/20/2016 Performs Monthly Self-breast Exam? No Information not available 08/20/2016 Do You Use Protection During Sex? Always Information not available 08/20/2016 What Is Your Relationship Status? Single Information not available 08/20/2016 Seat Belts Used Routinely Yes Information not available 08/20/2016 Are You Sexually Active? Yes Information not available 08/20/2016 Do You Have Smoke And Carbon Monoxide Detectors In Your Home? Yes Information not available 07/09/2022 Are You Passively Exposed To Smoke? Yes Information not available 07/09/2022 General Stress Level High Information not available 08/20/2016 Do You Use Sunscreen Routinely? No Information not available 08/20/2016 Has Tobacco Cessation Counseling Been Provided? Yes Information not available 07/09/2022 On What Date Was Tobacco Cessation Counseling Provided? 07/09/2022 Information not available 07/09/2022 Sex: Unknown Functional Status Question Answer Note LastModified by Organizat ion Details LastModified Time Do you use any illicit or recreational drugs? No Information not available 07/09/2022 Do you or have you ever used any other forms of tobacco or nicotine? Yes Information not available 07/09/2022 What is your level of alcohol consumption? Occasional Information not available 08/20/2016 Do you or have you ever used smokeless tobacco? Never used smokeless tobacco Information not available 07/09/2022 Are you currently employed? 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 Never used electronic cigarettes Information not available 07/09/2022 What is your exercise level? Occasional Information not available 08/20/2016 Mental Status None recorded. Family History Relationship Description Onset Age of this Age Resolved Age Notes LastModified by Organization Details LastModified Time Father Heart disease 61 Not available 2015 10:37:48 Father Myocardial infarction 62 [email or web address] Not available 03/26 11:49:01 Mother Cerebrovascu lar accident [email or web address] Not available 12/2016 11:49:07 Mother Hypertensive disorder [email or web address] Not available 2016 11:49:13 Medical History Condition Response Heart Problems N Other N Breast Cancer N Kidney or Bladder Problems N Thyroid Problems N Lung Disease N Depression Y Blood Clots N GI Problems N Acne N Eating Disorder N Breast Problem N Anemia N Anesthesia Complications N Headaches/Migraines N Anxiety Disorder Y Ovarian Cancer N Diabetes N Muscle, Joint, or Bone Problems N Blood Transfusions N Arthritis N Seizures/Epilepsy N Infertility N Polyps N Acid Reflux (GERD) N Cancer N Stroke N Abuse/Domestic Violence N Asthma N Endometriosis N High Cholesterol N Hepatitis N Liver Disease N Heart Disease N Fibromyalgia N Pre-Eclampsia N Hypertension N Osteoporosis N Kidney Disease N Gynecological History Statement/Question Response Abnormal Pap N Date of Last Mammogram 04/25/2021 Flow Moderate Date of LMP 06/23/2022 On BCP's at Conception? N STIs/STDs Y HPV Vaccine Y Duration of Flow (days) 3 Most Recent Mammogram 12/06/2017 Age at Menarche 13 Current Control Method Tubal Ligat ion Age at First Child 23 Sexually Active? Y Menses Monthly Y Date of Last Pap Smear 06/27/2017 Sexual Problems? Y LMP Approximate Desired Control Method N/A Obstetrics History GPAL:G 4 P 3 0 1 3 Type Value Multiple Births 0 Full Term 3 Induced 0 Spontaneous 1 Premature 0 Living 3 Ectopics 0 Total 4 Past Encounters Encounter ID Performer Location Encounter Start Date Encounter Closed Date Diagnosis/Indication Diagnosis SNOMED-CT Code Diagnosis ICD10 Code Diagnosis Note [id number] Lori Ibarra MD [address] [address] 01/11/2015 09:32:26 01/11/2015 10:45:13 Gynecologic examination 29370694 High risk sexual behavior 123876624 Candidiasis of vagina 68034614 [id number] Lori Ibarra MD [address] [address] 3 08/20/2016 10:24:45 08/20/2016 11:10:46 Gynecologic examination 29085397 Z01.419 High risk sexual behavior 924808014 Z72.51 Acute vaginitis 95184946 N76.0 Recent antibiotic use for tooth. Screening mammography 24 567583 Z12.31 [id number] Lori Ibarra MD [address] [address] 08/30/2016 12:51:42 08/30/2016 14:25:11 Viral hepatitis, type A 89048048 B15.9 [id number] MD Juvencio Spears ([facility]) [address] [place] [id number] 03/26/2017 10:42:38 03/27/2017 14:45:32 Gynecologic examination 31907614 Z01.419 Mammography abnormal 168 795802 R92.8 Sickle cell trait 303295 00 D57.3 Atrophic vaginitis 73831 000 N95.2 Family radha nning surveillance 010802857 Z30.09 [id number] Iam Peoples MD [address] [address] 11/20/2017 14:23:56 11/21/2017 10:06:02 Acute bronchitis 39456505 J20.9 Completed antibiotic s, cough persist. Discussed that cough could linger for up to 4 weeks. Continue cough syrup PRN. [id number] Lori Ibarra MD [address] [address] 11/21/2017 09:40:37 11/21/2017 11:42:07 Acute vaginitis 15729945 N76.0 Upper resp iratory infection 46761644 J06.9 Improved. Will return to work on 11/27/17. Mammography abnormal 168 985879 R92.8 [id number] Narciso Morton [facility] [address] [place] [id number] 2018 10:50:55 2018 12:14:05 Exposure to sexually transmissible disorder 800707345 Z20.2 Z11.3 Premenopausal state 2263 6003 N91.2 Sickle cell trait 495103 00 D57.3 Anxiety 31923022 F41.9 Depressive disorder 3548 9007 F32.9 Screening mammography 24 122201 Z12.31 Family radha nning surveillance 520804176 Z30.09 [id number] CLAIR Feliciano [address] [place] [address] 03/15/2020 10:57:50 03/16/2020 09:31:57 Viral syndrome 440389563 B34.9 D/w pt the current pandemic of COVID-19 and call for social isolation in order to blunt the curve and minimize risk and spread. Encouraged patient and family to take restrictio ns seriously. They have verbalized understand ing of such. [id number] MD Juvencio Balderrama (Adult Med) [address] [place] [id number] 06/19/2022 10:38:32 06/20/2022 14:16:01 Abnormal vaginal bleeding 263615723 N93.9 Fatigue 73412147 R53.83 Sickle cell trait 392553 00 D57.3 Family his tory of cardiac disorder 031778901 Z82.49 Atypical chest pain 1025 16694 R07.[id number] [facility] Juvencio ([employer]) [address] [place] [phone] 07/09/2022 11:50:20 07/10/2022 13:05:24 Gynecologic examination 36877387 Z01.419 1. Counseled regarding prevention of STD's , condom use and prevention . 2. Counseled regarding contracept nidhi options, risk factors and side effects. 3. Advised avoidance of tobacco, alcohol, and drugs . 4. Counseled regarding folic acid supplement ation, calcium needs and prevention of osteoporos is . 5. BSE reviewed and recommende d. 6. Follow up in one year or sooner if needed. Screening mammography 24 423095 Z12.31 Importance of yearly mammograms and sbe exam discussed with pt. Mammogram order given, pt verbalized understand ing. Malaise and fatigue 2717 51956 R53.81 Pt advised on iron rich foods and ways to increase iron consumptio n/absorpti on. Iron labs done and sent to lab. Will follow up pending results. Vaginal discharge 519142 006 N89.8 Health Concerns Section Related Observation LastModified by Organization Detai ls LastModified Time None Recorded Concern Status LastModified by Organization Details LastModified Time None Recorded Advance Directives Directive N: Payers Insurance Date Sequence Insurance Name Policy Number Policy Guillermo Covered Member ID Guillermo Member ID Guarantor Name 06/05/2022 1 [facility] (MEDICAID HMO) [id number] Joanne Tobar [id number] Joanne Tobar 06/19/2022 COVID19 [facility] [employer] TREATMENT FUND Joanne Tobar [id number] Joanne Tobar 06/19/2022 1 *SELF PAY* Agata Tobar 06/19/2022 SLIDING FEE SCHEDULE - DISCOUNT Joanne Tobar 07/06/2022 1 [facility] (MEDICAID HMO) [id number] Joanne Tobar [id number] Joanne Tobar 06/05/2022 1 MEDICAID-[place] : [place] [employer] Joanne Silvestre [id number] Joanne Tobar 03/26/2017 1 *SELF PAY* Agata Tobar 06/05/2022 1 [employer] (POS) [id number] Joanne Silvestre [id number] Joanne Tobar 03/15/2020 SLIDING FEE SCHEDULE - DISCOUNT Joanne Tobar 2018 1 *SELF PAY* Agata Tobar Notes Date Note Type Note Provider Name and Address Organization Details Recorded Time 7 text/htm l 47 y.o. here with complaints of upper respiratory infection (pneumonia) and needs paperwork completed to return to work. Seen in the ER. Did not get follow up MMG done. Thinks she has a yeast infection. Lori Ibarra [facility] 11/21/2017 11:41:55 8 text/htm l Annual GYNReported by PatientHistoryFor history, patient reportsno change in interval history.Genitourinary symptomsFor menstrual cycle, patient reportsnormal menses. For urinary symptoms, patient reportsno hematuriaandno incontinence. For vulva, patient reportsno genital lesion. For vagina, patient reportsnormal vaginal discharge.Breast symptomsFor breast, patient reportsno breast pain,no breast lump, andno nipple discharge.ContraceptionFor current contraception, patient reportstubal ligation.Endocrine symptomsFor sexual complaints, patient reportsno sexual complaints,no pain during intercourse, andnormal libido. For menopausal symptoms, patient reportsno menopausal symptomsandnormal vaginal lubrication.Psychological symptomsFor psychological symptoms, patient reportsno depression,no anxiety, andno pmdd.Preventative measuresFor preventive measures, patient reportsencourage self breast examination,encourage regular exercise,encourage no tobacco use,encourage regular mammograms starting age 40, andfollowed with q3 year pap smear and high risk hpv typing. 48y AAF presents for vaginal dryness, loss of libido, and body aches. Narciso Morton becca, [facility] 05/02/2018 16:17:34 0 text/htm l COVID-19 Symptoms January 2020Reported by PatientUpper Respiratory SymptomsFor quality, patient reportsdry cough. For associated symptoms, patient reportsdiarrheaandrunny nose. For contacts and exposure, patient reportsclose contact with a confirmed or suspected case of covid-19andclose proximity with person with covid-19. COVID ScreeningReported by PatientHPIFor associated symptoms, patient reportscoughandshortness of breath. For comorbidities, (bronchitis).ROS as noted in the HPI 49 yo female,spoke via phone with C/O exposed by sister how was pos, Patient now has cough, SOB, diarrhea, for three day. CORBIN Boyer NP Attn: Accounting,[address] [facility], [place], [address], [facility] 03/15/2020 12:05:24 2 text/htm l Chest pain for the past week. Was seen at [facility]. CMP and troponin levels unremarkable. Evaluation unremarkable. Pain is pressure-like and may occur at rest. Pt gets SOB with exertion. and had a blood transfusion six months. She has had heavy vaginal bleeding. Jose Patel MD Attn: Accounting,[address] [facility], [place], [address], [facility] 06/19/2022 12:06:49 2 text/htm l Annual GYNReported by PatientGenitourinary symptomsFor menstrual cycle, patient reportsperimenopausal. For urinary symptoms, patient reportsno hematuriaandno incontinence. For vulva, patient reportsno genital lesion. For vagina, patient reportsnormal vaginal discharge.Breast symptomsFor breast, patient reportsno breast pain,no breast lump, andno nipple discharge.ContraceptionFor current contraception, patient reportstubal ligation.Endocrine symptomsFor sexual complaints, patient reportsno sexual complaints,no pain during intercourse, andnormal libido. For menopausal symptoms, patient reportsno menopausal symptomsandnormal vaginal lubrication.Psychological symptomsFor psychological symptoms, patient reportsno depression,no anxiety, andno pmdd.Preventative measuresFor preventive measures, patient reportsencourage self breast examination,encourage regular exercise,encourage no tobacco use,encourage regular mammograms starting age 40,followed with q3 year pap smear and high risk hpv typing, andneeds to schedule mammogram.ROS as noted in the HPI 52 yo fe here for wwe and abnormal bleeding- hx tubal ligation, hep A, anemia, hsv2, sickle cell trait, anxiety/depression- last mammogram wnl 07/03/18- gets them done [facility], has one scheduled upcoming- last pap wnl 06/27/17- pt states regular cycles until this past month had one that lasted 4 weeks, has never had that happen before EMILEE Garcia- Attn: Accounting,[address] [place], [address], [facility] 07/09/2022 12:25:43 OBGyn Episode Ob Episode Information Episode Created Date Number of Fetuses Patient Bloodtype Patient rh Status Prepregnancy Weight lbs Domestic Partner Domestic Partner Phone Father Name Machine Welt Butter Status 03/26/20 17 1 CLOSED Fetus Data First Name Last Name Admitted to NICU Weight (g) Sex Living Outcome Pediatric Complications Fetus ID Race Codes Race Delivery Type 3572.03 7 F Full Term 60084 Vaginal Abel Calculation Initial Abel Date Initial Exam Date Initial Exam Provider Initial Ultrasound Date Last Menstrual Period Date Ultra Sound Weeks Gestation 0 Eighteen To Twenty Week Abel Update Ultra Sound Date Fundal Height At Umbil Quickening Date Ultra Sound Latest Weeks Gestation Final Abel Confirmed By Final Abel Confirmed Date Final Abel Date Ultra Sound Latest Days Gestation 0 0 Menstrual History Last Menstrual Date Menses Monthly On Bcp Conception Prior Menses Frequency Hcg Plus Date Menarche Onset Age Delivery Information Delivery Date Delivery Type Labor Anesthesia Weeks Gestation Incision Type Labor Labor Length Hrs Delivered By Post Complications Tubal Sterilization Discharge Date Comments 3 None 40 false Baby was borb in [place] Discharge Information Feeding Method Contraceptive Method Maternal HG B and HCT Levels Ob Episode Information Episode Created Date Number of Fetuses Patient Bloodtype Patient rh Status Prepregnancy Weight lbs Domestic Partner Domestic Partner Phone Father Name Machine Welt Butter Status 03/26/20 17 1 CLOSED Fetus Data First Name Last Name Admitted to NICU Weight (g) Sex Living Outcome Pediatric Complications Fetus ID Race Codes Race Delivery Type 2721.55 2 F Full Term 30142 Abel Calculation Initial Abel Date Initial Exam Date Initial Exam Provider Initial Ultrasound Date Last Menstrual Period Date Ultra Sound Weeks Gestation 0 Eighteen To Twenty Week Abel Update Ultra Sound Date Fundal Height At Umbil Quickening Date Ultra Sound Latest Weeks Gestation Final Abel Confirmed By Final Abel Confirmed Date Final Abel Date Ultra Sound Latest Days Gestation 0 0 Menstrual History Last Menstrual Date Menses Monthly On Bcp Conception Prior Menses Frequency Hcg Plus Date Menarche Onset Age Delivery Information Delivery Date Delivery Type Labor Anesthesia Weeks Gestation Incision Type Labor Labor Length Hrs Delivered By Post Complications Tubal Sterilization Discharge Date Comments 5 Regional-Ep idural 40 false Discharge Information Feeding Method Contraceptive Method Maternal HG B and HCT Levels Ob Episode Information Episode Created Date Number of Fetuses Patient Bloodtype Patient rh Status Prepregnancy Weight lbs Domestic Partner Domestic Partner Phone Father Name Machine Welt Butter Status 11/21/20 17 1 CLOSED Fetus Data First Name Last Name Admitted to NICU Weight (g) Sex Living Outcome Pediatric Complications Fetus ID Race Codes Race Delivery Type 2721.55 2 M Full Term [id number] Only Abel Calculation Initial Abel Date Initial Exam Date Initial Exam Provider Initial Ultrasound Date Last Menstrual Period Date Ultra Sound Weeks Gestation 0 Eighteen To Twenty Week Abel Update Ultra Sound Date Fundal Height At Umbil Quickening Date Ultra Sound Latest Weeks Gestation Final Abel Confirmed By Final Abel Confirmed Date Final Abel Date Ultra Sound Latest Days Gestation 0 0 Menstrual History Last Menstrual Date Menses Monthly On Bcp Conception Prior Menses Frequency Hcg Plus Date Menarche Onset Age Delivery Information Delivery Date Delivery Type Labor Anesthesia Weeks Gestation Incision Type Labor Labor Length Hrs Delivered By Post Complications Tubal Sterilization Discharge Date Comments 2 Regional-Sp inal Discharge Information Feeding Method Contraceptive Method Maternal HG B and HCT Levels
--- OUTSIDE RECORDS SUMMARY | 2025-06-20 10:46 | XMS_ITS | Clinical Summary ---
Author Organization [facility] [employer] Address [address] [place] [address] Care Team Providers Care Assistant Public Defender Name Role Phone Jose Patel MD Primary Care Provider [phone] Source Comments [facility],non-owned Affiliates and Associated Physician Practices is amultiple site organization consisting of ambulatory clinics and hospital sitesin [place], [place], [place] and [place]. This disclosure is being madepursuant to the Care Everywhere program and may not contain all information available regarding this patient. Last updated 18.[facility] [employer] Allergies No known active allergies Medications * Be aware that medications may not be up to date on this document. Alwaysverify current medications with the patient. albuterol HFA (Proventil; Ventolin; Proair) 108 (90 Base) MCG/ACT inhaler every 4 hours Active ergocalciferol (Drisdol) 1.25 MG (81869 UT) capsule ergocalciferol (vitamin D2) 1,250 mcg (50,000 unit) capsule TAKE 1 CAPSULE BY MOUTH 1 TIME A WEEK 2 Active ferrous sulfate 325 (65 FE) MG tablet FeroSul 325 mg (65 mg iron) tablet TAKE 1 TABLET BY MOUTH DAILY Active Ascorbic Acid (Vitamin C) 100 MG Take 1 tablet by mouth once daily Active Active Problems Problem Noted Date Diagnosed Date Menorrhagia with regular cycle Immunizations Immunization Administration Dates Next Due TDAP (7yrs+) 03/07/2021 Social History Tobacco Use Types Packs/Day Years Used Date Smoking Tobacco: Never Smokeless Tobacco: Never Alcohol Use Standard Drinks/Week Comments Yes 0 (1 standard drink = 0.6 oz pur e alcohol) OCC AUDIT-C Answer Date Recorded Q1: How often do you have a drink containing alc ohol? Never 08/01/2022 Average Number of Drinks Not on file 022 Frequency of Binge Drinking Not on file 05/2022 PHQ-2 Answer Date Recorded PHQ2 TOTAL SCORE 0 11/30/2021 Comments No Sex and Gender Information Value Date Recorded Sex Assigned at Female 12/06/2021 2:07 PM TURKEY PICKER Legal Sex Female 12:23 PM CDT Gender Identity Female 12/06/2021 2:07 PM TURKEY PICKER Sexual Orientation Not on file Last Filed Vital Signs Vital Sign Reading Time Taken Comments Blood Pressure 122/78 08/27/2022 3:08 PM CDT Pulse 73 08/27/2022 3:08 PM CDT Temperature 35.9 C (96.7 F) 08/01/2022 12:42 PM CDT Respiratory Rate 14 08/01/2022 1:14 PM CDT Oxygen Saturation 98% 08/27/2022 3:08 PM CDT Inhaled Oxygen Concentration - - Weight 96.1 kg (211 lb 12.8 oz) 08/27/2022 3:08 PM CDT Height 180.3 cm (5' 11) 08/27/2022 3:08 PM CDT Body Mass Index 29.54 08/27/2022 3:08 PM CDT Plan of Treatment Health Maintenance Due Date Last Done Comments COLOGUARD (AGES 45-75) - COL ON CA SCREENING 1972 COLON MONITORING 1972 COLONOSCOPY - COLON CA SCREENING 1972 CT COLONOGRAPHY - COLON CA SCREENING 1972 Colorectal Cancer Screening 1972 FIT - COLON CA SCREENING 1972 FLEX SIG - COLON CA SCREENING 1972 LIPID TESTING 1972 MAMMOGRAM 1972 HIV SCREENING 1987 HEPATITIS C SCREENING 04/27/1990 HEPATITIS B VACCINE (1 of 3 - 19+ 3-dose series) 1991 PAP SMEAR 1993 PNEUMOCOCCAL VACCINE 50+ (1 of 1 - PCV) 2022 ZOSTER VACCINE (1 of 2) 2022 SCREENING FOR DIABETES 08/15/2022 COVID-19 VACCINE (1 - 2023-2 5 season) 2024 DEPRESSION SCREENING 11/25/2024 07/19/2022 INFLUENZA VACCINE (#1) 2025 DTAP/TDAP/TD VACCINES (2 - T d or Tdap) 03/07/2031 03/07/2021 HIB VACCINE Aged Out No longer eligi ble based on patient's age to complete this topic HPV VACCINE Aged Out No longer eligi ble based on patient's age to complete this topic MENINGOCOCCAL (Group B) VACC INE SHARED DECISION-MAKING Aged Out No longer eligibl e based on patient's age to complete this topic MENINGOCOCCAL GROUPS A/C/Y/W VACCINE Aged Out No longer eligible b ased on patient's age to complete this topic Insurance [address] [facility] * Guarantor: NIDA MCKEE Account Type Relation to Patient Date of Phone Billing Address Personal/Family 1970 [address] [place] [address] Care Teams Assistant Public Defender Relationship Specialty Start Date End Date Jose Patel MD [address] [place], [place] [id number] PCP - General Gastroenterology 08/01/22
--- OUTSIDE RECORDS SUMMARY | 2025-06-20 10:46 | XMS_ITS | Clinical Summary ---
Author Organization [facility] Address [address] [place] [id number] Care Team Providers Care Employment Officer Name Role Phone None, Provider MD Primary Care Provider Unavaila ble Allergies No known active allergies Medications naproxen 500 MG tablet Take 500 mg by mouth 2 (two) times daily with meals. Active Spacer/Aero-Hol ding Chambers (AEROCHAMBER MINI CHAMBER) Device 1 Package by Does not apply route daily. 1 Device 11/12/2017 Active Active Problems No known active problems Family History Medical History Relation Comments Heart Disease Father Hypertension Mother Parkinson's Disease Mother Relation Status Comments Father Mother Social History Tobacco Use Types Packs/Day Years Used Date Smoking Tobacco: Never Smokeless Tobacco: Never Alcohol Use Standard Drinks/Week Comments Yes 1.7 (1 standard drink = 0.6 oz p ure alcohol) SOCIALLY Comments No Sex and Gender Information Value Date Recorded Sex Assigned at Not on file Legal Sex Female 5:56 PM CDT Gender Identity Not on file Sexual Orientation Not on file Last Filed Vital Signs Vital Sign Reading Time Taken Comments Blood Pressure 125/74 07/07/2019 8:34 PM CDT Pulse 72 07/07/2019 8:34 PM CDT Temperature 37.1 C (98.8 F) 07/07/2019 8:16 PM CDT Respiratory Rate 18 07/07/2019 8:34 PM CDT Oxygen Saturation 99% 07/07/2019 8:34 PM CDT Inhaled Oxygen Concentration - - Weight 93.8 kg (206 lb 12.7 oz) 07/07/2019 8:16 PM CDT Height 180.3 cm (5' 11) 07/07/2019 8:16 PM CDT Body Mass Index 28.84 07/07/2019 8:16 PM CDT Plan of Treatment Health Maintenance Due Date Last Done Comments Cervical Cancer Screening Pa p Smear (Age 30 to 64) Every 3 Years 1972 Colorectal Cancer Screening Colonoscopy (10 Years) 1972 Annual Physical 1975 Hepatitis C 1990 DTaP, Tdap and Td Vaccines ( 1 - Tdap) 1991 Hepatitis B Vaccines (1 of 3 - 19+ 3-dose series) 1991 Cervical Cancer Screening Pa p with HPV Testing (Age 30 to 64) Every 5 Years 2002 Cervical Cancer Screening with HPV 2002 Mammogram Screening 2012 Pneumococcal Vaccine: 50+ Ye ars (1 of 1 - PCV) 2022 Zoster Vaccines (1 of 2) 2022 COVID-19 Vaccine (1 - 2023-2 5 season) 2024 PHQ-2 (Physician [place]) 11/25/2024 Meningococcal B Vaccine Aged Out No l onger eligible based on patient's age to complete this topic Meningococcal Vaccine Aged Out No marjorie jimena eligible based on patient's age to complete this topic RSV Immunizations Under 20 Months Aged Out No longer eligible based on patient's age to complete this topic Insurance MEDICAID [employer] [place] Care Teams Employment Officer Relationship Specialty Start Date End Date None, Provider, PCP - General 10/13/18
--- OUTSIDE RECORDS SUMMARY | 2025-06-20 10:46 | XMS_ITS | Encounter Summary ---
[facility] Organization [facility] Address [address] [place] [address] Care Team Providers Care Quality Auditor Name Role Phone Unavailable Primary Care Provider Unavailabl e Encounter Details Date Type Department Care Team (Latest Contact Info) Description 06/28/2004 Outpatient Historical [facility] Rose MD HEADACHE (Primary Dx) Social History Tobacco Use Types Packs/Day Years Used Date Smoking Tobacco: Never Assessed Comments Unknown Sex and Gender Information Value Date Recorded Sex Assigned at Not on file Legal Sex Female 5:01 AM BATCH ANALYST Gender Identity Not on file Sexual Orientation Not on file documented as of this encounter Plan of Treatment Not on file documented as of this encounter Visit Diagnoses Diagnosis Headache(784.0)- Primary Headache documented in this encounter
--- OUTSIDE RECORDS SUMMARY | 2025-06-20 11:04 | XMS_ITS | Referral Summary ---
Author Organization [facility] Address [address] [place] [address] Care Team Providers Care Video Intern Name Role Phone No, Physician Primary Care Provider Encounters Date Type Department Care Team Description 06/10/2025 Telephone [facility] [address] [facility] Advanced Medicine 8th [place] [address] [place] [id number] Enedelia Cohen CMA 06/08/2025 5:55 PM CDT - 06/08/2025 11:59 PM CDT Hospital Encounter [facility] ([facility]) [address] [place] [address] Discharge Disposition: Discharge to home or self care 06/08/2025 5:55 PM CDT - 06/08/2025 11:59 PM CDT Hospital Encounter [facility] ([facility]) [address] [place] [address] Discharge Disposition: Discharge to home or self care 06/08/2025 5:52 PM CDT - 06/08/2025 11:59 PM CDT Hospital Encounter [facility] ([facility]) [address] [place] [address] Discharge Disposition: Discharge to home or self care 06/08/2025 5:51 PM CDT - 06/08/2025 11:59 PM CDT Hospital Encounter [facility] ([facility]) [address] [place] [address] Discharge Disposition: Discharge to home or self care 06/08/2025 Documentation [facility] [address] [facility] Advanced Medicine 8th [place] [address] [place] [id number] Henna Wagner RN 06/04/2025 10:40 AM CDT Lab [facility] ([facility]) [address] [place] [address] Multiple idiopathic cysts of lung 06/04/2025 7:43 AM CDT - 06/04/2025 11:59 PM CDT Hospital Encounter [facility] [address] [facility] [address] [place] [address] Other form of dyspnea Discharge Disposition: Discharge to home or self care 06/04/2025 9:15 AM CDT Office Visit [facility] [address]th [place] [address] [place] [address] Federico Galloway MD Multiple idiopathic cysts of lung (Primary Dx); Other form of dyspnea; Excessive daytime sleepiness 04/20/2025 Orders Only [facility] 8th [place] [address] [place] [address] Federico Galloway MD Other form of dyspnea (Primary Dx) from Last 3 Months Allergies No known active allergies Medications acetaminophen (TYLENOL) 325 mg tablet Take 1 tablet (325 mg total) by mouth every 6 (six) hours as needed for pain, headaches or fever 2 Active albuterol HFA (PROVENTIL HFA,VENTOLIN HFA,PROAIR HFA) 90 mcg/actuation inhaler Inhale 2 puffs every 4 (four) hours as needed for wheezing or shortness of breath Active ascorbic acid, vitamin C, 100 mg tablet,chewable Take 1 tablet/chew tab (100 mg total) by mouth daily Active diclofenac DR (VOLTAREN) 75 mg EC tablet Take 1 tablet (75 mg total) by mouth 2 (two) times a day 3 Active docusate sodium (COLACE) 100 mg capsule Take 1 capsule (100 mg total) by mouth 2 (two) times a day 2 Active ergocalciferol (VITAMIN D) 50,000 unit capsule Take 1 capsule (50,000 Units total) by mouth once a week 2 Active ferrous sulfate 325 mg (65 mg of elemental iron) tablet Take 1 tablet (325 mg total) by mouth daily 2 Active gabapentin (NEURONTIN) 100 mg capsule Take 1 capsule (100 mg total) by mouth 3 (three) times a day 2 Active methocarbamoL (ROBAXIN) 750 mg tablet Take 1 tablet (750 mg total) by mouth 3 (three) times a day as needed 2 Active naproxen (NAPROSYN) 500 mg tablet Take 1 tablet (500 mg total) by mouth 2 times daily Active ondansetron ODT (ZOFRAN-ODT) 4 mg disintegrating tablet Take 1 tablet (4 mg total) by mouth every 8 (eight) hours as needed 7 Active predniSONE (DELTASONE) 20 mg tablet Take 1 tablet (20 mg) by mouth daily Active traZODone (DESYREL) 50 mg tablet Take 1 tablet (50 mg total) by mouth nightly Active psyllium, aspartame, SF (METAMUCIL SF) 3.4 gram packet Take 1 packet by mouth daily Active clotrimazole 1 % cream Apply topically 2 (two) times a day Active diclofenac sodium (VOLTAREN) 1 % gel Apply 2 g topically 4 (four) times a day Active buPROPion XL (WELLBUTRIN XL) 150 mg 24 hr tablet Take 1 tablet (150 mg total) by mouth daily Active topiramate (TOPAMAX) 50 mg tablet Take 1 tablet (50 mg total) by mouth 2 (two) times a day Active hydrophilic ointment Apply topically as needed for dry skin Active lubricant (Lubricating Jelly, chlorhexid,) gel Apply topically 2 (two) times a day as needed Active fluoride, sodium, 0.2 % solution Apply to teeth Active SUMAtriptan (IMITREX) 25 mg tabletIndications: Migraine Take 1 tablet (25 mg total) by mouth once as needed for migraine May repeat dose once in 2 hours if no relief. Do not exceed 2 doses in 24 hours. Active hydrOXYzine (VISTARIL) 25 mg capsule Take 1 capsule (25 mg total) by mouth 3 (three) times a day as needed for itching Active omeprazole 20 mg tablet,delayed release (DR/EC) Take by mouth Active Active Problems Problem Noted Date Diagnosed Date Dyspnea 06/04/2025 Social History Tobacco Use Types Packs/Day Years Used Date Smoking Tobacco: Never Smokeless Tobacco: Never Tobacco Cessation:Counseling Given: Not Answered Comments Unknown Sex and Gender Information Value Date Recorded Sex Assigned at Not on file Legal Sex Female 8:57 PM [employer] Gender Identity Not on file Sexual Orientation Not on file Last Filed Vital Signs Vital Sign Reading Time Taken Comments Blood Pressure 109/80 06/04/2025 9:32 AM CDT Pulse 75 06/04/2025 9:32 AM CDT Temperature 36.1 C (97 F) 06/04/2025 9:32 AM CDT Respiratory Rate 18 06/04/2025 9:32 AM CDT Oxygen Saturation 100% 06/04/2025 9:32 AM CDT Inhaled Oxygen Concentration - - Weight 109.3 kg (241 lb) 06/04/2025 9:32 AM CDT Height 180.3 cm (5' 11) 06/04/2025 9:32 AM CDT Body Mass Index 33.61 06/04/2025 9:32 AM CDT Plan of Treatment Not on file Procedures Procedure Name Priority Date/Time Associated Diagnosis Comments US TRANSFER OF OUTSIDE FILMS Routine 06/08/2025 5:[address] BODY OUTSIDE REFERENCE Routine 06/08/2025 5:55 PM CDT XR TRANSFER OF OUTSIDE FILMS Routine 06/08/2025 5:[address] BODY OUTSIDE REFERENCE Routine 06/08/2025 5:51 PM CDT MICHAELA QUALITATIVE WITH REFLEX TO MICHAELA QUANTITATIVE Routine 06/04/2025 10:47 AM CDT Multiple idiopathic cysts of lung ORA-1 ANTIBODY Routine 06/04/2025 10:47 AM CDT Multiple idiopathic cysts of lung SCL 70 ANTIBODIES Routine 06/04/2025 10: 47 AM CDT Multiple idiopathic cysts of lung [employer] ANTIBODIES Routine 06/04/2025 10:47 AM CDT Multiple idiopathic cysts of lung DC ANTIBODIES Routine 06/04/2025 10:4 7 AM CDT Multiple idiopathic cysts of lung SJOGRENS SYNDROME-B ANTIBODY Routine 06/04/2025 10:47 AM CDT Multiple idiopathic cysts of lung SJOGRENS SYNDROME-A ANTIBODY Routine 06/04/2025 10:47 AM CDT Multiple idiopathic cysts of lung LEONARDO ANTIBODY EVALUATION WITH REFLEX Routine 06/04/2025 10:47 AM CDT Multiple idiopathic cysts of lung RHEUMATOID FACTOR Routine 06/04/2025 10: 47 AM CDT Multiple idiopathic cysts of lung CREATINE KINASE (CK), TOTAL Routine 06/04/2025 10:47 AM CDT Multiple idiopathic cysts of lung CYCLIC CITRUL PEPTIDE ANTIBODY, IGG Routine 06/04/2025 10:47 AM CDT Multiple idiopathic cysts of lung PROTEIN ELECTROPHORESIS, WITH REFLEX, SERUM Routine 06/04/2025 10:47 AM CDT Multiple idiopathic cysts of lung IMMUNOFIXATION, URINE Routine 06/04/2025 10:47 AM CDT Multiple idiopathic cysts of lung IGG Routine 06/04/2025 10:47 AM CDT Multiple idiopathic cysts of lung IGA Routine 06/04/2025 10:47 AM CDT Multiple idiopathic cysts of lung ALLERGIC BRONCHOPULMONARY ASPERGILLOSIS CASCADE Routine 06/04/2025 10:47 AM CDT Multiple idiopathic cysts of lung HIV 1/2 ANTIBODY PLUS P24 ANTIGEN Routine 06/04/2025 10:47 AM CDT Multiple idiopathic cysts of lung PULMONARY FUNCTION TEST (PFT) Routine 06/04/2025 9:16 AM CDT Other form of dyspnea from Last 3 Months Results * US Outside Reference (06/08/2025 5:55 PM CDT) Impressions [facility] - 06/08/2025 5:55 PM CDT These images are for Reference purposes only and have not been reviewed by [facility]. There will be no report generated by a [facility] Radiologist. Narrative [facility] - 06/08/2025 5:55 PM CDT EXAMINATION: Images For Reference Purposes Only us Bam Castillo MD IMG US PROCEDURES Final Resul t Performing Organization Address [facility] de Phone Number [email or web address] * CT Body Outside Reference (06/08/2025 5:55 PM CDT) Impressions [facility] - 06/08/2025 5:55 PM CDT These images are for Reference purposes only and have not been reviewed by [facility]. There will be no report generated by a [facility] Radiologist. Narrative [facility] - 06/08/2025 5:55 PM CDT EXAMINATION: Images For Reference Purposes Only us Bam Castillo MD IMG CT PROCEDURES Final Resul t Performing Organization Address [facility] de Phone Number [email or web address] * XR Outside Reference (06/08/2025 5:52 PM CDT) Impressions [facility] - 06/08/2025 5:52 PM CDT These images are for Reference purposes only and have not been reviewed by [facility]. There will be no report generated by a [facility] Radiologist. Narrative [facility] - 06/08/2025 5:52 PM CDT EXAMINATION: Images For Reference Purposes Only us Bamjed Castillo MD IMG XR PROCEDURES Final Resul t Performing Organization Address [facility] de Phone Number [email or web address] * CT Body Outside Reference (06/08/2025 5:51 PM CDT) Impressions ANA - 06/08/2025 5:51 PM CDT These images are for Reference purposes only and have not been reviewed by [facility]. There will be no report generated by a [facility] Radiologist. Narrative [facility] - 06/08/2025 5:51 PM CDT EXAMINATION: Images For Reference Purposes Only us Bam Castillo MD IMG CT PROCEDURES Final Resul t Performing Organization Address City/[facility]/ZIP Co de Phone Number [facility] * (ABNORMAL) MICHAELA ab ql w/rflx to MICHAELA qn (06/04/2025 10:47 AM CDT) MICHAELA Positive( A) Comment: Interpretive Data Normal range for MICHAELA Qualitative Antibody = Negative. 1. MICHAELA is performed using indirect immunofluorescence against HEp-2 cells 2. MICHAELA titers are performed on all positive qualitative results. 3. A significantly positive MICHAELA result is defined as a positive nuclear fluorescence at a titer of 1:80 or greater. 4. 15% of normal people above age 65 have significantly positive MICHAELA results. 5% or less of normal people age 65 or under have significantly positive MICHAELA results. Current interpretive data was last revised on 2020. MICHAELA, quant 1:80 titer [facility] MICHAELA, interp Homogeneo us(A) [facility] Blood 06/04/2025 10:4 7 AM CDT 06/04/2025 11:22 AM CDT us Federico Galloway MD LAB BLOOD ORDERAB LES Final Result Performing Organization Address City/[facility]/ZIP Co de Phone Number [facility] Department [place] [address] * Allergic bronchopulmonary aspergillosis cascade (06/04/2025 10:47 AM CDT) IgE 6 <=100 IUnits/mL Blood 06/04/2025 10:4 7 AM CDT 06/04/2025 11:29 AM CDT Federico Galloway MD LAB BLOOD ORDERAB LES Final Result Performing Organization Address [facility] Co de Phone Number [facility] [place] [address] * SCL 70 abs (06/04/2025 10:47 AM CDT) Anti-Scl70, IgG <0.2 <=0.9 Ab Index Comment: Interpretive Data Negative: < 1.0 Ab Index Positive: > or = 1.0 Ab Index Current interpretive data was last revised on 2017. Blood 06/04/2025 10:4 7 AM CDT 06/04/2025 11:30 AM CDT Federico Galloway MD LAB BLOOD ORDERAB LES Final Result Performing Organization Address [facility] [place] [address] * Dc abs (06/04/2025 10:47 AM CDT) Anti-LEONARDO, SM <0.2 <=0.9 Ab Index Comment: Interpretive Data Negative: < 1.0 Ab Index Positive: > or = 1.0 Ab Index Current interpretive data was last revised on 2017. Blood 06/04/2025 10:4 7 AM CDT 06/04/2025 11:30 AM CDT Federico Galloway MD LAB BLOOD ORDERAB LES Final Result Performing Organization Address [facility] Co de Phone Number [facility] [place] [address] * [employer] abs (06/04/2025 10:47 AM CDT) [employer] ab <0.2 <=0.9 Ab Index Comment: Interpretive Data Negative: < 1.0 Ab Index Positive: > or = 1.0 Ab Index Current interpretive data was last revised on 2017. Blood 06/04/2025 10:4 7 AM CDT 06/04/2025 11:30 AM CDT us Federico Galloway MD LAB BLOOD ORDERAB LES Final Result Performing Organization Address City/[facility] Co de Phone Number [facility] [place] [address] * (ABNORMAL) LEONARDO ab eval w/reflex (06/04/2025 10:47 AM CDT) Pathologist [facility] LEONARDO ab Positive( A) Negative Comment: Interpretive Data Positive Screens will be reflexed to specific testing for Antibodies against the following antigens: Ora-1 Ab, [employer] Ab, Scl-70 Ab, Dc Ab, SS-A/Ro Ab, and SS- B/La Ab. Further testing for dsDNA, Centromere, or Ribosomal P antibodies is suggested in patient with a positive screen and negative specific antibodies. Current interpretive data was last revised on 2023. Blood 06/04/2025 10:4 7 AM CDT 06/04/2025 11:30 AM CDT us Federico Galloway MD LAB BLOOD ORDERAB LES Final Result [facility] [place] [address] * Ora-1 antibody (06/04/2025 10:47 AM CDT) Ora 1 Antibody, IgG <0.2 <=0.9 Ab Index Comment: Interpretive Data Negative: < 1.0 Ab Index Positive: > or = 1.0 Ab Index Current interpretive data was last revised on 2017. Blood 06/04/2025 10:4 7 AM CDT 06/04/2025 11:30 AM CDT us Federico Galloway MD LAB BLOOD ORDERAB LES Final Result Performing Organization Address City/[facility] Co de Phone Number [facility] [place] [address] * HIV 1/2 Antibody plus p24 Antigen Blood (06/04/2025 10:47 AM CDT) Pathologist [facility] HIV 1/2 ab + p24 ag Nonreactive Nonreactive Comment:Nonreactive for HIV- 1 antigen and HIV-1/HIV-2 antibodies. No laboratory evidence of HIV infection. If acute HIV infection is suspected, consider testing for HIV-1 RNA. Current interpretive data was last revised on 22. Blood 06/04/2025 10:4 7 AM CDT 06/04/2025 11:31 AM CDT us Federico Galloway MD LAB MICROBIOLOGY - GENERAL ORDERABLES Final Result Performing Organization Address [facility] Co de Phone Number [facility] [place] [address] * Immunofixation, urine with interpretation (06/04/2025 10:47 AM CDT) Pathologist [facility] Immunofixation, Ur Please see comment Comment: NO PARAPROTEIN DETECTED Reviewed and signed by Abhilash Yang MD, PhD 06/07/2025 Urine 06/04/2025 10:4 7 AM CDT 06/04/2025 12:31 PM CDT us Federico Galloway MD LAB URINE ORDERAB LES Final Result Performing Organization Address City/[facility] Co de Phone Number [facility] [place] [address] * Cyclic citrul peptide antibody, IgG (06/04/2025 10:47 AM CDT) CCP Ab <0.5 <=2.9 units/mL Comment: Interpretive data Negative: <3 units/mL Positive: > or equal to 3 units/mL Current interpretive data was last revised on 2017. Blood 06/04/2025 10:4 7 AM CDT 06/04/2025 11:29 AM CDT Federico Galloway MD LAB BLOOD ORDERAB LES Final Result Performing Organization Address [facility] Co de Phone Number [facility] [place] [address] * Sjogren's syndrome B ab (06/04/2025 10:47 AM CDT) Pathologist [facility] Anti-LEONARDO, SS-B <0.2 <=0.9 Ab Index Comment: Interpretive Data Negative: < 1.0 Ab Index Positive: > or = 1.0 Ab Index Current interpretive data was last revised on 2017. Blood 06/04/2025 10:4 7 AM CDT 06/04/2025 11:30 AM CDT Federico Galloway MD LAB BLOOD ORDERAB LES Final Result Performing Organization Address City/[facility] Co de Phone Number [facility] [place] [address] * Sjogren's syndrome A ab (06/04/2025 10:47 AM CDT) Anti-LEONARDO, SS-A <0.2 <=0.9 Ab Index Comment: Interpretive Data Negative: < 1.0 Ab Index Positive: > or = 1.0 Ab Index Current interpretive data was last revised on 2017. Blood 06/04/2025 10:4 7 AM CDT 06/04/2025 11:30 AM CDT Federico Galloway MD LAB BLOOD ORDERAB LES Final Result [facility] [place] [address] * Rheumatoid factor (06/04/2025 10:47 AM CDT) [facility] Rheumatoid factor, quant <10.0 0.1 - 15.0 IUnits/mL Blood 06/04/2025 10:4 7 AM CDT 06/04/2025 11:29 AM CDT Federico Galloway MD LAB BLOOD ORDERAB LES Final Result Performing Organization Address [facility] de Phone Number [facility] Department [place] [address] * (ABNORMAL) Protein electrophoresis with reflex, serum with interpretation (06/04/2025 10:47 AM CDT) [facility] Protein, sr 7.9 6.2 - 8.2 g/dL Albumin 4.1 3.2 - 5.0 g/dL [facility] Alpha-1 globulin 0.3 0.2 - 0.4 g/dL [facility] Alpha-2 globulin 0.7 0.5 - 1.0 g/dL [facility] Beta-1 globulin 0.6 0.3 - 0.6 g/dL [facility] Beta-2 globulin 0.8(H) 0.2 - 0.6 g/dL [facility] Gamma globulin 1.4 0.5 - 1.7 g/dL [facility] SPEP interp Please see comment [facility] Comment: No apparent monoclonal peak Reviewed and signed by Abhilash Yang MD, PhD 06/05/2025 Blood 06/04/2025 10:4 7 AM CDT 06/04/2025 11:22 AM CDT us Federico Galloway MD LAB BLOOD ORDERAB LES Final Result Performing Organization Address City/[facility] Co de Phone Number [facility] [place] [address] * (ABNORMAL) IgA (06/04/2025 10:47 AM CDT) Immunoglobulin A 592(H) 70 - 400 mg/dL Blood 06/04/2025 10:4 7 AM CDT 06/04/2025 11:29 AM CDT us Federico Galloway MD LAB BLOOD ORDERAB LES Final Result Performing Organization Address [facility] Co de Phone Number [facility] [place] [address] * IgG (06/04/2025 10:47 AM CDT) Immunoglobulin G 1,565 700 - 1,600 mg/dL Blood 06/04/2025 10:4 7 AM CDT 06/04/2025 11:29 AM CDT us Federico Galloway MD LAB BLOOD ORDERAB LES Final Result Performing Organization Address [facility] Co de Phone Number [facility] [place] [address] * Creatine kinase (CK), total (06/04/2025 10:47 AM CDT) CK 58 30 - 200 Units/L Blood 06/04/2025 10:4 7 AM CDT 06/04/2025 11:29 AM CDT us Federico Galloway MD LAB BLOOD ORDERAB LES Final Result Performing Organization Address City/[facility] Co de Phone Number [facility] Department [place] [address] * Pulmonary Function Test - (06/04/2025 9:16 AM CDT) FVC PRE 3.03 L [facility] FVC %PRE PRED 73 % [facility] FVC POST 3.06 L [facility] FVC %POST PRED 73 % [facility] FEV1 PRE 2.35 L [facility] FEV1 %PRE PRED 71 % [facility] FEV1 POST 2.41 L [facility] FEV1 %POST PRED 73 % [facility] FEV1/FVC PRE 77.6 % [facility] FEV1/FVC POST 78.9 % [facility] FRC PL PRE 3.[address] [facility] FRC PL %PRE PRED 87 % [facility] RV PRE 2.41 L [facility] RV %PRE PRED 109 % [facility] TLC PRE 5.34 L [facility] TLC %PRE PRED 87 % [facility] DLCO PRE 21.9 ml/min/mmH g [facility] DLCO %PRE PRED 90 % [facility] FIO2 % 21.00 % [facility] PaO2 92.0 mmHg [facility] PaCO2 39.0 mmHg [facility] pH 7.41 [facility] A-aDO2 POC 9.0 mmHg [facility] METHGB % 0.9 % [facility] COHb POC 1.4 % [facility] HCO3 24.7 mEq/L [facility] Anatomical Region Laterality Modality PFT 06/04/2025 8:14 AM CDT Narrative 06/04/2025 5:58 PM CDT Table formatting from the original result was not included. [facility] Division of Pulmonary & Critical Care Medicine [address] [place] [address]; [place] [address]; [place] [address]; [phone] Pulmonary Function Laboratory Pulmonary Stress Test Simple/Oxygen Assessment Patient: Joanne Tobar Date: 06/04/2025 : 1970 Ht: 71 IN Wt: 241 LBS Time (min) Distance (ft)/ Howe O2 L/M SpO2 HR Minerva* BP FEV1 % Pred Rest: RA 100 71 0 136/73 2.33 71 % Walk/Bike: 1 RA 99 87 0 2 RA 98 101 0 3 RA 98 103 0 4 RA 98 105 0 5 RA 98 105 0 6 min 0 sec RA 98 107 0 Recovery: 1 RA 100 86 0 135/93 2.27 69% 3 RA 100 73 0 *Minerva rate of perceived exertion (1-10 dyspnea scale) Abdifatah, CHEST 2003; [id number] Walk Test Summary: Six Minute Walk Distance: 1350 ft Six-minute Walk Work [distance (m) x body wt (kg)]: 25142 kg.m (normal >60,000kg.m) Oxygen required to maintain SpO2 greater than 90% during six minutes of walkin L/M Comments: O2A-0 STOPS Interpretation: Breathing room air, SpO2 is normal at rest and during exercise sufficient to increase pulse, SpO2 is stable. On this basis, SpO2 is adequate at rest breathing room air and while walking breathing room air. This level of exercise is associated with no significant change of FEV1. By signing this report, the attending pulmonary physician certifies that he/she has personally reviewed and interpreted the graphic and numerical data associated with this pulmonary function study and has reviewed and /or edited a preliminary draft report and agrees with the written final report. PFT performed at:->[facility] Adult PFT [facility] Procedure:->Oxygen Assessment Titration Procedure:->Spirometry Procedure:->Spirometry with Bronchodilator Procedure:->Lung Volumes Procedure:->ABG with Co-oximetry Procedure:->DLCO Lung Volumes via:->Pleth with Airway Resistance DLCO:->Spirometry Air Type:->Room Air Pulmonary Function Test Interpretation SPIROMETRY: The FEV1 and FVC are reduced in a pattern suggestive of a restrictive abnormality. There is no significant improvement after inhaling a single dose of albuterol. The inspiratory loop is normal. LUNG VOLUMES: TLC measured by plethysmography is normal. Overweight status may be the cause of the decreased ERV. DLCO: The diffusing capacity corrected for hemoglobin level (DLCO ADJ) is within normal limits. ARTERIAL BLOOD GAS: The pH and pCO2 are normal. The arterial pO2 is normal at rest. O2 saturation measured by oximetry is normal at rest. Impression: There is a non-specific ventilatory defect. There is no impairment of alveolar gas exchange by DLCO. There is no impairment of gas exchange at rest by ABG. The attending pulmonary physician certifies a physician presence in the [facility] during the administration of aerosolized bronchodilator. The attending pulmonary physician certifies that he/she has reviewed and interpreted the graphic and numerical data of this pulmonary function study and agrees with the written final report. The lower limit of normal for PaO2 and %HbO2 is age dependent. However, the [facility] Function [facility] defines hypoxemia as a PaO2 <56 mm Hg or a %HbO2 <89%. Starting on November of 2024 the [facility] Function Laboratory utilizes race neutral GLI Global normative equations. Federico Galloway MD PFT ORDERABLES F inal Result from Last 3 Months Insurance [facility] [address] Care Teams Video Intern Relationship Specialty Start Date End Date No, Physician PCP - General 06/04/25
--- OUTSIDE RECORDS SUMMARY | 2025-06-20 11:04 | XMS_ITS | Clinical Summary ---
Author Organization [facility] Address [address] [place] [id number] Care Team Providers Care Slipper Maker Name Role Phone No, Physician Primary Care Provider [phone] Allergies No known active allergies Medications acetaminophen [...] Problem Noted Date Diagnosed Date Dyspnea 06/04/2025 Encounters Date Type Department Care Team Description 06/10/2025 Telephone [facility] Pulmonary [address] [facility] Advanced Medicine 8th [place] [address] [place] [address] Enedelia Cohen CMA 06/08/2025 5:55 PM CDT - 06/08/2025 11:59 PM CDT Hospital Encounter [facility] [address] [place] [address] Discharge Disposition: Discharge to home or self care 06/08/2025 5:55 PM CDT - 06/08/2025 11:59 PM CDT Hospital Encounter [facility] ([facility]) [address] [place] [phone] Discharge Disposition: Discharge to home or self care 06/08/2025 5:52 PM CDT - 06/08/2025 11:59 PM CDT Hospital Encounter [facility] ([facility]) [address] [place] [phone] Discharge Disposition: Discharge to home or self care 06/08/2025 5:51 PM CDT - 06/08/2025 11:59 PM CDT Hospital Encounter [facility] ([facility]) [address] [place] [phone] Discharge Disposition: Discharge to home or self care 06/08/2025 Documentation [facility] Pulmonary [address] [place] [address] Advanced Medicine 8th [place] [address] [place] [address] Henna Wagner RN 06/04/2025 10:40 AM CDT Lab [facility] Advanced [facility] ([facility]) [address] [place] [phone] Multiple idiopathic cysts of lung 06/04/2025 9:15 AM CDT Office Visit [facility] Pulmonary [address] [place] [address] Advanced [facility] 8th [place] [address] [place] [address] Federico Galloway MD Multiple idiopathic cysts of lung (Primary Dx); Other form of dyspnea; Excessive daytime sleepiness 06/04/2025 7:43 AM CDT - 06/04/2025 11:59 PM CDT Hospital Encounter [facility] Pulmonary [address] [facility] [address] [place] [address] Other form of dyspnea Discharge Disposition: Discharge to home or self care 04/20/2025 Orders Only [facility] Pulmonary [address] [place] [address] Advanced [facility] 8th [place] [address] [place] [address] Federico Galloway MD Other form of dyspnea (Primary Dx) from Last 3 Months Social History Tobacco Use Types Packs/Day Years Used Date Smoking Tobacco: Never Smokeless Tobacco: Never Tobacco Cessation:Counseling Given: Not Answered Comments Unknown Sex and Gender Information Value Date Recorded Sex Assigned at Not on file Legal 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 Gender Identity Not on file Sexual Orientation Not on file Obstetrics History Last Filed Vital Signs Vital Sign Reading [...] 06/04/2025 9:32 AM CDT Plan of Treatment Health Maintenance Due Date Last Done Comments Breast Cancer Screening-Mammogram 1972 Cervical Cancer Screening 1972 Colon Cancer Screening-Colonoscopy 1972 Depression Screening 1972 Hepatitis C Screening 1972 Hepatitis B Screening 1990 Regular Well Visit/Exam 18-64 1990 Zoster Vaccine (2 of 2) 10/05/2024 08/10/2024 Influenza Vaccine (#1) 2025 DTaP/Tdap/Td Vaccine (2 - Td or Tdap) 03/07/2031 03/07/2021 Pneumococcal vaccine <65 Aged Out No longer eligible based on patient's age to complete this topic Procedures Procedure Name Priority Date/Time Associated Diagnosis [...] AM CDT Multiple idiopathic cysts of lung TARGET DEVELOPER ANTIBODIES Routine 06/04/2025 10:47 AM CDT Multiple [...] Outside Reference (06/08/2025 5:55 PM CDT) Impressions [facility] - 06/08/2025 5:55 PM CDT These images are for Reference purposes only and have not been reviewed by [facility]. There will be no report generated by a [facility] Radiologist. Narrative [facility] - 06/08/2025 5:55 PM CDT EXAMINATION: Images For Reference Purposes Only us Bam Castillo MD IMG US PROCEDURES Final Resul t Performing Organization Address [facility] Co de Phone Number [email or web address] * CT Body Outside Reference (06/08/2025 5:55 PM CDT) Impressions [facility] - 06/08/2025 5:55 PM CDT These images are for Reference purposes only and have not been reviewed by [facility]. There will be no report generated by a [facility] Radiologist. Narrative [facility] - 06/08/2025 5:55 PM CDT EXAMINATION: Images For Reference Purposes Only us Bam Castillo MD IMG CT PROCEDURES Final Resul t [facility] * XR Outside Reference (06/08/2025 5:52 PM CDT) Impressions RAD_SANDY_[facility] - 06/08/2025 5:52 PM CDT These images are for Reference purposes only and have not been reviewed by [facility]. There will be no report generated by a [facility] Radiologist. Narrative RAD_PACDarell_CELSO - 06/08/2025 5:52 PM CDT EXAMINATION: Images For Reference Purposes Only us Bam Castillo MD IMG XR PROCEDURES Final Resul t Performing Organization Address [facility] de Phone Number [email or web address] * CT Body Outside Reference (06/08/2025 5:51 PM CDT) Impressions LATRICE_SANDY_[facility] - 06/08/2025 5:51 PM CDT These images are for Reference purposes only and have not been reviewed by [facility]. There will be no report generated by a [facility] Radiologist. Narrative [facility] - 06/08/2025 5:51 PM CDT EXAMINATION: Images For Reference Purposes Only us Bma Castillo MD IMG CT PROCEDURES Final Resul t Performing Organization Address [facility] de Phone Number [email or web address] * (ABNORMAL) MICHAELA ab ql w/rflx to [...] revised on 2020. MICHAELA, quant 1:80 titer [facility] MICHAELA, interp Homogeneo us(A) [facility] Blood 06/04/2025 10:4 7 AM CDT 06/04/2025 11:22 AM CDT us Federico Galloway MD LAB BLOOD ORDERAB LES Final Result Performing Organization Address [facility] Co de Phone Number [facility] [place] [address] * Allergic bronchopulmonary aspergillosis cascade (06/04/2025 10:47 AM CDT) IgE 6 <=100 IUnits/mL Blood 06/04/2025 10:4 7 AM CDT 06/04/2025 11:29 AM CDT us Federico Galloway MD LAB BLOOD ORDERAB LES Final Result Performing Organization Address [facility] Co de Phone Number [facility] [place] [address] * SCL 70 abs (06/04/2025 10:47 AM CDT) Anti-Scl70, IgG <0.2 <=0.9 Ab Index Comment: Interpretive Data Negative: < 1.0 Ab Index Positive: > or = 1.0 Ab Index Current interpretive data was last revised on 2017. Blood 06/04/2025 10:4 7 AM CDT 06/04/2025 11:30 AM CDT us Federico Galloway MD LAB BLOOD ORDERAB LES Final Result Performing Organization Address [facility] Co de Phone Number [facility] [place] [address] * Dc abs (06/04/2025 10:47 AM CDT) Anti-LEONARDO, SM <0.2 <=0.9 Ab Index Comment: Interpretive Data Negative: < 1.0 Ab Index Positive: > or = 1.0 Ab Index Current interpretive data was last revised on 2017. Blood 06/04/2025 10:4 7 AM CDT 06/04/2025 11:30 AM CDT Federico Galloway MD LAB BLOOD ORDERAB LES Final Result Performing Organization Address [facility] de Phone Number [facility] [place] [address] * TARGET DEVELOPER abs (06/04/2025 10:47 AM CDT) TARGET DEVELOPER ab <0.2 <=0.9 Ab Index Comment: Interpretive Data Negative: < 1.0 Ab Index Positive: > or = 1.0 Ab Index Current interpretive data was last revised on 2017. Blood 06/04/2025 10:4 7 AM CDT 06/04/2025 11:30 AM CDT Federico Galloway MD LAB BLOOD ORDERAB LES Final Result Performing Organization Address [facility] de Phone Number [facility] [place] [address] * (ABNORMAL) LEONARDO ab eval w/reflex (06/04/2025 10:47 AM CDT) LEONARDO ab Positive( A) Negative Comment: Interpretive Data Positive Screens will be reflexed to specific testing for Antibodies against the following antigens: Ora-1 Ab, TARGET DEVELOPER Ab, Scl-70 Ab, Dc Ab, SS-A/Ro Ab, and SS- B/La Ab. Further testing for dsDNA, Centromere, or Ribosomal P antibodies is suggested in patient with a positive screen and negative specific antibodies. Current interpretive data was last revised on 2023. Blood 06/04/2025 10:4 7 AM CDT 06/04/2025 11:30 AM CDT Federico Galloway MD LAB BLOOD ORDERAB LES Final Result Performing Organization Address City/[facility] Co de Phone Number [facility] [place] [address] * Ora-1 antibody (06/04/2025 10:47 AM CDT) Pathologist [facility] Ora 1 Antibody, IgG <0.2 <=0.9 Ab Index Comment: Interpretive Data Negative: < 1.0 Ab Index Positive: > or = 1.0 Ab Index Current interpretive data was last revised on 2017. Blood 06/04/2025 10:4 7 AM CDT 06/04/2025 11:30 AM CDT Federico Galloway MD LAB BLOOD ORDERAB LES Final Result Performing Organization Address [facility] Co de Phone Number [facility] [place] [address] * HIV 1/2 Antibody plus p24 Antigen Blood (06/04/2025 10:47 AM CDT) Pathologist [facility] HIV 1/2 ab + p24 ag Nonreactive Nonreactive Comment:Nonreactive for HIV- 1 antigen and HIV-1/HIV-2 antibodies. No laboratory evidence of HIV infection. If acute HIV infection is suspected, consider testing for HIV-1 RNA. Current interpretive data was last revised on 22. Blood 06/04/2025 10:4 7 AM CDT 06/04/2025 11:31 AM CDT Federico Galloway MD LAB MICROBIOLOGY - GENERAL ORDERABLES Final Result Performing Organization Address [facility] Co de Phone Number [facility] [place] [address] * Immunofixation, urine with interpretation (06/04/2025 10:47 AM CDT) Immunofixation, Ur Please see comment Comment: NO PARAPROTEIN DETECTED Reviewed and signed by Abhilash Yang MD, PhD 06/07/2025 Urine 06/04/2025 10:4 7 AM CDT 06/04/2025 12:31 PM CDT Federico Galloway MD LAB URINE ORDERAB LES Final Result Performing Organization Address [facility] de Phone Number [facility] Department [place] [address] * Cyclic citrul peptide antibody, IgG (06/04/2025 10:47 AM CDT) Pathologist [facility] CCP Ab <0.5 <=2.9 units/mL Comment: Interpretive data Negative: <3 units/mL Positive: > or equal to 3 units/mL Current interpretive data was last revised on 2017. Blood 06/04/2025 10:4 7 AM CDT 06/04/2025 11:29 AM CDT Federico Galloway MD LAB BLOOD ORDERAB LES Final Result Performing Organization Address [facility] de Phone Number [facility] [place] [address] * Sjogren's syndrome B ab (06/04/2025 10:47 AM CDT) Pathologist [facility] Anti-LEONARDO, SS-B <0.2 <=0.9 Ab Index Comment: Interpretive Data Negative: < 1.0 Ab Index Positive: > or = 1.0 Ab Index Current interpretive data was last revised on 2017. Blood 06/04/2025 10:4 7 AM CDT 06/04/2025 11:30 AM CDT Federico Galloway MD LAB BLOOD ORDERAB LES Final Result Performing Organization Address [facility] Co de Phone Number [facility] [place] [address] * Sjogren's syndrome A ab (06/04/2025 10:47 AM CDT) [facility] Anti-LEONARDO, SS-A <0.2 <=0.9 Ab Index Comment: Interpretive Data Negative: < 1.0 Ab Index Positive: > or = 1.0 Ab Index Current interpretive data was last revised on 2017. Blood 06/04/2025 10:4 7 AM CDT 06/04/2025 11:30 AM CDT Federico Galloway MD LAB BLOOD ORDERAB LES Final Result Performing Organization Address [facility] Co de Phone Number [facility] [place] [address] * Rheumatoid factor (06/04/2025 10:47 AM CDT) [facility] Rheumatoid factor, quant <10.0 0.1 - 15.0 IUnits/mL Blood 06/04/2025 10:4 7 AM CDT 06/04/2025 11:29 AM CDT Federico Galloway MD LAB BLOOD ORDERAB LES Final Result Performing Organization Address [facility] [place] [address] * (ABNORMAL) Protein electrophoresis with reflex, serum with interpretation (06/04/2025 10:47 AM CDT) [facility] Protein, sr 7.9 6.2 - 8.2 g/dL Albumin 4.1 3.2 - 5.0 g/dL [facility] Alpha-1 globulin 0.3 0.2 - 0.4 g/dL [facility] Alpha-2 globulin 0.7 0.5 - 1.0 g/dL [facility] Beta-1 globulin 0.6 0.3 - 0.6 g/dL [facility] Beta-2 globulin 0.8(H) 0.2 - 0.6 g/dL [facility] Gamma globulin 1.4 0.5 - 1.7 g/dL [facility] SPEP interp Please see comment [facility] Comment: No apparent monoclonal peak Reviewed and signed by Abhilash Yang MD, PhD 06/05/2025 Blood 06/04/2025 10:4 7 AM CDT 06/04/2025 11:22 AM CDT Federico Galloway MD LAB BLOOD ORDERAB LES Final Result Performing Organization Address [facility] Co de Phone Number [facility] [place] [address] * (ABNORMAL) IgA (06/04/2025 10:47 AM CDT) Immunoglobulin A 592(H) 70 - 400 mg/dL Blood 06/04/2025 10:4 7 AM CDT 06/04/2025 11:29 AM CDT us Federico Galloway MD LAB BLOOD ORDERAB LES Final Result Performing Organization Address [facility] Co de Phone Number [facility] [place] [address] * IgG (06/04/2025 10:47 AM CDT) Immunoglobulin G 1,565 700 - 1,600 mg/dL Blood 06/04/2025 10:4 7 AM CDT 06/04/2025 11:29 AM CDT us Federico Galloway MD LAB BLOOD ORDERAB LES Final Result Performing Organization Address [facility] Co de Phone Number [facility] Cindi [facility] Department [place] [address] * Creatine kinase (CK), total (06/04/2025 10:47 AM CDT) CK 58 30 - 200 Units/L Blood 06/04/2025 10:4 7 AM CDT 06/04/2025 11:29 AM CDT us Federico Galloway MD LAB BLOOD ORDERAB LES Final Result [facility] Cindi [facility] [place] [address] * Pulmonary Function Test - (06/04/2025 9:16 AM CDT) FVC PRE 3.03 L [facility] FVC %PRE PRED 73 % [facility] FVC POST 3.06 L [facility] FVC %POST PRED 73 % [facility] FEV1 PRE 2.35 L [facility] FEV1 %PRE PRED 71 % [facility] FEV1 POST 2.41 L [facility] FEV1 %POST PRED 73 % [facility] FEV1/FVC PRE 77.6 % [facility] FEV1/FVC POST 78.9 % [facility] FRC PL PRE 3.04 L [facility] FRC PL %PRE PRED 87 % [facility] RV PRE 2.41 L [facility] RV %PRE PRED 109 % [facility] TLC PRE 5.34 L [facility] TLC %PRE PRED 87 % [facility] DLCO PRE 21.9 ml/min/mmH g [facility] DLCO %PRE PRED 90 % [facility] FIO2 % 21.00 % [facility] PaO2 92.0 mmHg [facility] PaCO2 39.0 mmHg [facility] pH 7.41 [facility] A-aDO2 POC 9.0 mmHg [facility] METHGB % 0.9 % [facility] COHb POC 1.4 % [facility] HCO3 24.7 mEq/L [facility] Anatomical Region Laterality Modality PFT 06/04/2025 8:14 AM CDT Narrative 06/04/2025 5:58 PM CDT Table formatting from the original result was not included. [facility] Division of Pulmonary & Critical Care Medicine [address] [place] [address]; [place] [address]; [place] [id number]; [phone] Pulmonary Function Laboratory Pulmonary Stress Test Simple/Oxygen [...] Work [distance (m) x body wt (kg)]: 20765 kg.m (normal >60,000kg.m) Oxygen required to maintain [...] with the written final report. PFT performed at:->[facility] PFT Lab- [facility] Procedure:->Oxygen Assessment Titration Procedure:->Spirometry Procedure:->Spirometry with Bronchodilator [...] and %HbO2 is age dependent. However, the [facility] Pulmonary Function Laboratory defines hypoxemia as a PaO2 <56 mm Hg or a %HbO2 <89%. Starting on November of 2024 the [facility] Pulmonary Function Laboratory utilizes race neutral GLI Global normative equations. Federico Galloway MD PFT ORDERABLES F inal Result from Last 3 Months [place] [id number] Care Teams Slipper Maker Relationship Specialty Start Date End Date No, Physician PCP - General 06/04/25
--- NOTE | 2025-06-20 11:14 | ED.GENADULT ---
HPI - General Adult General Chief complaint: Headache Stated complaint: migraine Time Seen by Provider: 06/20/25 10:55 History of Present Illness HPI narrative: 55-year-old female with history of migraines presents emergency department for evaluation for migraines been ongoing since Saturday. Patient states she is in the process of moving and was unable the find her abortive medications. Patient states this migraine started as her typical migraine and is in the same locations but has just not resolved. Patient does report headache with associated light sensitivity. Patient does have nausea and bilateral ear pain. Related Data Home Medications ?Medication ?Instructions ?Recorded ?Confirmed ?Last Taken ?Type carisoprodol 07/11/22 Unknown History prednisone 20 mg tablet mg 07/11/22 Unknown History Allergies Allergy/AdvReac Type Severity Reaction Status Date / Time No Known Allergies Allergy Verified 07/11/22 15:00 Review of Systems Review of Systems: All systems reviewed & are unremarkable except as noted in HPI and below PMFSH Past Medical History Medical History Iron deficiency anemia Family History Family History Grandparent Diabetes mellitus Sibling Diabetes mellitus Acute myocardial infarction Father Acute myocardial infarction Mother Acute myocardial infarction Other Hypertension Social History Social History Social History: . Lives alone. 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 Smoking status: Current some day smoker Tobacco type: cigars Second hand tobacco smoke exposure: No Alcohol intake: unknown Substance use: never Living arrangements: alone Occupation/Education: occupation Additional occupation/education comments: [employer] Gender identity (if verbalized by the patient): Female Spiritual care concerns: No Exam Narrative: APPEARANCE: Uncomfortable. HEAD: normocephalic, atraumatic. EYES: PERRLA/EOMI, conjunctivae clear. NOSE: Normal no drainage EARS:TMS clear with good light reflex. THROAT: Pharynx clear, no exudate. NECK: Supple. No adenopathy, no masses. RESPIRATORY: Airway patent, respirations nonlabored. Clear to auscultation bilaterally, no rales, rhonchi, wheezing. CARDIOVASCULAR: Regular rate and rhythm without murmurs rubs or gallops. ABDOMINAL: Soft, nontender, nondistended, normal bowel sounds MUSCULOSKELETAL: Moves all extremities. Strength/ROM intact, No edema, No calf tenderness. NEURO: Alert. Cranial nerves II through XII intact. Good gait. Good coordination. Negative Romberg SKIN: Warm, dry. Normal Color Course Vital Signs Vital signs: Vital Signs Temperature 97.8 F 06/20/25 11:15 Pulse Rate 85 06/20/25 11:15 Respiratory Rate 06/20/25 11:15 Blood Pressure 135/95 H 06/20/25 11:15 Pulse Oximetry 100 06/20/25 11:15 Oxygen Delivery Room Air 06/20/25 11:15 Temperature 97.8 F 06/20/25 11:15 Pulse Rate 85 06/20/25 11:15 Respiratory Rate 17 06/20/25 11:15 Blood Pressure 135/95 H 06/20/25 11:15 Pulse Oximetry 100 06/20/25 11:15 Oxygen Delivery Room Air 06/20/25 11:15 Medical Decision Making MDM Narrative Medical decision making narrative: 55-year-old female present to the emergency department for evaluation for migraine headache. Patient has a normal neuro exam. The lighted proceed in this migraine typical migraines has not resolved patient is also been unable to take her reported medications. Patient was treated with IV Toradol, IV Benadryl, IV Compazine and patient does feel significantly improved on re-evaluation. Patient's exam and improvement medications consistent with a migraine. No evidence of otitis media. Differential Diagnosis Differential Diagnosis: Migraine, headache, otitis media, sinusitis Vital Signs Vital Signs: Vital Signs Temperature 97.8 F 06/20/25 11:15 Pulse Rate 06/20/25 11:15 Respiratory Rate 06/20/25 11:15 Blood Pressure 135/95 H 06/20/25 11:15 Pulse Oximetry 100 06/20/25 11:15 Oxygen Delivery Room Air 06/20/25 11:15 Temperature 97.8 F 06/20/25 11:15 Pulse Rate 85 06/20/25 11:15 Respiratory Rate 06/20/25 11:15 Blood Pressure 135/95 H 06/20/25 11:15 Pulse Oximetry 100 06/20/25 11:15 Oxygen Delivery Room Air 06/20/25 11:15 Discharge Plan Discharge Clinical Impression: Migraine, Headache Patient Disposition: Home Condition: Stable Instructions: Antibiotic Form, Migraine Headache (ED) Additional Instructions: Have close follow-up with your primary care physician. If you have any worsening symptoms then please call or return to the emergency department Patient Language: Arabic Prescriptions: No Action prednisone 20 mg Tablet carisoprodol Low-Ogestrel (28) 0.3-30 mg-mcg tablet 1 tablet PO DAILY Qty: 1 0RF Rx Instructions: 1 month supply ferrous sulfate [Iron (ferrous sulfate)] 325 mg (65 mg iron) tablet 325 mg PO DAILY Qty: 14 0RF multivitamin with iron [Daily Multiple Vitamins/Iron] Tablet 1 tablet PO DAILY Qty: 30 0RF Follow-up/Referrals: PHYSICIAN NOT ON STAFF,NONSTAFF [Non-Staff] - Stand Alone Forms: Work/School Release IP
[2025-06-20 11:15] VITALS: BP 135/95; PULSE 85; RESP 17; TEMP 36.6; O2SAT 100
[2025-06-20] MEDS: LACTATED RINGERS 1,000 ML 999 ML IV CONT (11:33)
[2025-06-20] MEDS: KETOROLAC 15 MG/ML VIAL (*BKC) 30 MG IV PUSH (11:33)
[2025-06-20] MEDS: PROCHLORPERAZINE EDISYLATE 10 MG/2 ML VIAL IV PUSH (11:34)
== END 2025-06-20 12:55 | disposition home or self-care (01) ==
PROVIDERS: Emergency Provider Emergency Medicine
DX: G43.909 Migraine, unspecified, not intractable, without status migrainosus (principal); D50.9 Iron deficiency anemia, unspecified; F17.290 Nicotine dependence, other tobacco product, uncomplicated
CPT/HCPCS: 96361; 96374; 96375; 99284; J0780; J1200; J1885; J7120